=== PATIENT | female | born 1960 | race Caucasian/White ===

== ENCOUNTER → 2017-04-21 | Outpatient (CLI) | payer BC ==
--- NOTE | 2017-04-21 14:46 | RAD ---
INDICATION: Right lower quadrant pain COMPARISON: 06/25/2011 TECHNIQUE: Axial CT images were obtained through the abdomen and pelvis without intravenous contrast. Coronal reformations were processed. FINDINGS: Abdomen: Chest Base: Partially imaged without gross abnormality. Vessels: Mild calcific atherosclerosis. Liver/Biliary: Low-attenuation. Postcholecystectomy. Pancreas: No gross abnormality. Spleen: Normal. Kidneys/Adrenal: No hydronephrosis. GI: No free air. No bowel dilation to suggest obstruction. Appendix does not appear inflamed Pelvis: Bladder: Partially distended without gross abnormality. 2 mm calcification right hemipelvis. Small fat-containing umbilical hernia. Degenerative changes spine. This includes disc protrusions at L4-5 where there is a suspected central canal and neural foraminal stenosis. There is also suspected neural foraminal stenosis at L5-S1. IMPRESSION: 1. No evidence of bowel obstruction or appendicitis. 2. No hydronephrosis. There is a 1-2 mm calcification in the right hemipelvis but this appears to be just external to the right ureter rather than within the ureter. 3. Liver is low attenuation. Nonspecific but can be seen with fatty infiltration PQRS Compliance Statement: One or more of the following individualized dose reduction techniques were utilized for this examination: 1. Automated exposure control 2. Adjustment of the mA and/or kV according to patient size 3. Use of iterative reconstruction technique
--- NOTE | 2017-04-21 15:00 | RAD ---
INDICATION: Chronic sinus infection COMPARISON: 05/04/[address] TECHNIQUE: Axial CT images were obtained through the paranasal sinuses. FINDINGS: Mastoid air cells are aerated. Maxillary sinuses well aerated. Ethmoid air cells, frontal sinus and sphenoid sinuses well aerated. No retro-orbital mass or hematoma. IMPRESSION: No opacification of the paranasal sinuses to suggest sinusitis. PQRS Compliance Statement: One or more of the following individualized dose reduction techniques were utilized for this examination: 1. Automated exposure control 2. Adjustment of the mA and/or kV according to patient size 3. Use of iterative reconstruction technique
== END | disposition home or self-care (01) ==
LOC: CT 12:50
PROVIDERS: ATTEND Nurse Practitioner Adult Health
DX: J32.9 Chronic sinusitis, unspecified (principal); K76.0 Fatty (change of) liver, not elsewhere classified; K44.9 Diaphragmatic hernia without obstruction or gangrene; K29.90 Gastroduodenitis, unspecified, without bleeding; K21.9 Gastro-esophageal reflux disease without esophagitis; J06.9 Acute upper respiratory infection, unspecified; J02.8 Acute pharyngitis due to other specified organisms; R11.0 Nausea
CPT/HCPCS: 70486; 74176

== ENCOUNTER 2018-06-18 09:51 | Emergency (ER) | payer BC ==
[~2018-06-18] VITALS: Ht 157.5 cm; Wt 86.2 kg
[2018-06-18 10:09] VITALS: BP 105/45
[2018-06-18] MEDS ORDERED: IV NORMAL SALINE 1,000ML 1,000 ML IV ONE (10:45)
[2018-06-18 10:53] LABS: BASO % 0 % (0-3); EOS # 0.1 x10^3/uL (0.0-0.7); EOS % 2 % (0-3); HEMATOCRIT 39.1 % (36.0-47.0); HEMOGLOBIN 13.4 g/dL (12.0-15.5); LYMPH # 0.7 x10^3/uL (1.0-4.8); LYMPH % 10 % (24-48); MEAN CORPUSCULAR HEMOGLOBIN 32 pg (25-35); MEAN CORPUSCULAR HGB CONC 34 g/dL (31-37); MEAN CORPUSCULAR VOLUME 93 fL (79-100); MONO # 0.6 x10^3/uL (0.0-1.1); MONO % 8 % (0-9); NEUT # 5.8 x10^3uL (1.8-7.7); NEUT % 80 % (31-73); PLATELET COUNT 152 x10^3/uL (140-400); RED BLOOD COUNT 4.19 x10^6/uL (3.50-5.40); RED CELL DISTRIBUTION WIDTH 12.9 % (11.5-14.5); WHITE BLOOD COUNT 7.2 x10^3/uL (4.0-11.0)
[2018-06-18] MEDS ORDERED: IOHEXOL 300 MG/ML 75 ML VIAL. IV ONE (11:00)
[2018-06-18] MEDS ORDERED: MORPHINE SULFATE 2 MG/ML DISP.SYRIN. IV ONE (11:00)
[2018-06-18] MEDS ORDERED: ONDANSETRON PF 4 MG/2 ML VIAL. IV ONE (11:00)
--- NOTE | 2018-06-18 11:28 | PHYS DOC ---
Past History Past Medical History: Other Past Surgical History: Cholecystectomy, Tubal ligation, Other Alcohol Use: None Drug Use: None Adult General Chief Complaint Chief Complaint: ABDOMINAL PAIN HPI HPI 58-year-old female presents with right lower quadrant abdominal pain that started today. The pain is described as a cramping/throbbing sensation. It is intermittent. The patient admits to yesterday she was feeling a little "off" but did not have any specific complaints. Today the pain has been too intense to ignore. The patient has had her gallbladder removed, but not her appendix. She is concerned for appendicitis. She denies fever or chills. She has not had nausea or vomiting. She has had loose stools yesterday and today. Review of Systems Review of Systems Constitutional: Denies fever or chills [] Eyes: Denies change in visual acuity, redness, or eye pain [] HENT: Denies nasal congestion or sore throat [] Respiratory: Denies cough or shortness of breath [] Cardiovascular: No additional information not addressed in HPI [] GI: Right lower quadrant abdominal pain, diarrhea.[] : Denies dysuria or hematuria [] Musculoskeletal: Denies back pain or joint pain [] Integument: Denies rash or skin lesions [] Neurologic: Denies headache, focal weakness or sensory changes [] Endocrine: Denies polyuria or polydipsia [] All other systems were reviewed and found to be within normal limits, except as documented in this note. Current Medications Current Medications Current Medications Medications (Trade) Dose Ordered Sig/Hi Start Time Stop Time Status Last Admin Dose Admin Iohexol (Omnipaque 300 Mg/ml) 75 ml 1X ONCE 06/18/18 11:00 06/18/18 11:01 DC Morphine Sulfate (Morphine 2mg Syringe) 2 mg 1X ONCE 06/18/18 11:00 06/18/18 11:01 DC Ondansetron HCl (Zofran) 4 mg 1X ONCE 06/18/18 11:00 06/18/18 11:01 DC Sodium Chloride 1,000 ml @ 1,000 mls/hr 1X ONCE 06/18/18 10:45 06/18/18 11:44 Allergies Allergies Allergies Coded Allergies Type Severity Reaction Last Updated Verified Sulfa (Sulfonamide Antibiotics) Allergy Unknown 06/18/18 Yes tetanus and diphtheria toxoids Allergy Unknown 06/18/18 Yes Physical Exam Physical Exam Constitutional: Well developed, well nourished, no acute distress, non-toxic appearance. [] HENT: Normocephalic, atraumatic, bilateral external ears normal, oropharynx dry , no oral exudates, nose normal. [] Eyes: PERRLA, EOMI, conjunctiva normal, no discharge. [] Neck: Normal range of motion, no tenderness, supple, no stridor. [] Cardiovascular:Heart rate regular rhythm, no murmur [] Lungs & Thorax: Bilateral breath sounds clear to auscultation [] Abdomen: Mild to moderate tenderness in the right lower quadrant without rebound or guarding.[] Skin: Warm, dry, no erythema, no rash. [] Back: Lumbar back tenderness, chronic[] Extremities: No tenderness, no cyanosis, no clubbing, ROM intact, no edema. [] Neurologic: Alert and oriented X 3, normal motor function, normal sensory function, no focal deficits noted. [] Psychologic: Affect normal, judgement normal, mood normal. [] Current Patient Data Vital Signs Vital Signs Date Time Temp Pulse Resp B/P (MAP) Pulse Ox O2 Delivery O2 Flow Rate FiO2 06/18/18 10:09 Room Air 06/18/18 10:09 99.0 100 20 94 Lab Results Laboratory Tests Test 06/18/18 10:20 White Blood Count 7.2 x10^3/uL (4.0-11.0) Red Blood Count 4.19 x10^6/uL (3.50-5.40) Hemoglobin 13.4 g/dL (12.0-15.5) Hematocrit 39.1 % (36.0-47.0) Mean Corpuscular Volume 93 fL (79-100) Mean Corpuscular Hemoglobin 32 pg (25-35) Mean Corpuscular Hemoglobin Concent 34 g/dL (31-37) Red Cell Distribution Width 12.9 % (11.5-14.5) Platelet Count 152 x10^3/uL (140-400) Neutrophils (%) (Auto) 80 % (31-73) H Lymphocytes (%) (Auto) 10 % (24-48) L Monocytes (%) (Auto) 8 % (0-9) Eosinophils (%) (Auto) 2 % (0-3) Basophils (%) (Auto) 0 % (0-3) Neutrophils # (Auto) 5.8 x10^3uL (1.8-7.7) Lymphocytes # (Auto) 0.7 x10^3/uL (1.0-4.8) L Monocytes # (Auto) 0.6 x10^3/uL (0.0-1.1) Eosinophils # (Auto) 0.1 x10^3/uL (0.0-0.7) Basophils # (Auto) 0.0 x10^3/uL (0.0-0.2) EKG EKG [] Radiology/Procedures Radiology/Procedures [] Impressions: CT of the abdomen and pelvis with contrast, 06/18/2018: HISTORY: Right lower quadrant pain Multidetector CT imaging was performed following an IV bolus injection of iodinated contrast material. No oral contrast material was administered for this study. There is minimal bibasilar atelectasis or scarring. The gallbladder is surgically absent. The liver is of lower than normal density suggesting hepatic steatosis. No hepatic mass is evident. The pancreas is unremarkable. The spleen is at the upper limits of normal in size measuring 13 cm in craniocaudad extent. There is mild bilateral renal cortical scarring. The kidneys show no evidence of obstruction. The abdominal aorta is of normal caliber. No abdominal or pelvic adenopathy is seen. The uterus is unremarkable. There is a surgical clip along the right side of the uterus. The bowel loops are not dilated. A portion of the appendix is visualized and it is unremarkable. No free air or free fluid is evident in the abdomen or pelvis. There are degenerative changes in the lower lumbar spine. There appears to be a moderate sized disc herniation at L4-5 with moderate central spinal stenosis, as well as a prominent right lateral herniated disc fragment. IMPRESSION: 1. Hepatic steatosis. 2. Mild bilateral renal cortical scarring. 3. No acute abdominal or pelvic abnormality is detected. 4. Degenerative change with disc herniation at L4-5. PQRS Compliance Statement: One or more of the following individualized dose reduction techniques were utilized for this examination: 1. Automated exposure control 2. Adjustment of the mA and/or kV according to patient size 3. Use of iterative reconstruction technique Electronically signed by: Denis Yee MD (06/18/2018 12:53 PM) [facility] DICTATED AND SIGNED BY: DENIS YEE MD DATE: 06/18/18 1243 CC: FELICITAS WEBER DO; ANAND VILLA MD ~ Course & Med Decision Making Course & Med Decision Making Pertinent Labs and Imaging studies reviewed. (See chart for details) The patient's labs are unremarkable. Her CT is negative for acute findings. There are other findings. See official read for further details. Her urine is negative for infection. The patient is feeling quite a bit better after normal saline, Zofran, and 2 of morphine. The patient has had chills well being in the ED. She has no measured fever. It is likely that she is coming down with a viral illness. He has not had any evidence of bacterial infection. She is stable for discharge at this time. [] Dragon Disclaimer Dragon Disclaimer This electronic medical record was generated, in whole or in part, using a voice recognition dictation system. Departure Departure: Referrals: ANAND VILLA MD (PCP) FELICITAS WEBER DO Jun 18, 2018 11:28
[2018-06-18 12:28] LABS: ALBUMIN 3.3 g/dL (3.4-5.0); ALBUMIN/GLOBULIN RATIO 1.1 (1.0-1.7); CALCIUM 8.8 mg/dL (8.5-10.1); GFR 57.1; POTASSIUM 3.8 mmol/L (3.5-5.1); TOTAL BILIRUBIN 0.5 mg/dL (0.2-1.0); TOTAL PROTEIN 6.4 g/dL (6.4-8.2)
--- NOTE | 2018-06-18 12:57 | RAD ---
CT of the abdomen and pelvis with contrast, 06/18/2018: HISTORY: Right lower quadrant pain Multidetector CT imaging was performed following an IV bolus injection of iodinated contrast material. No oral contrast material was administered for this study. There is minimal bibasilar atelectasis or scarring. The gallbladder is surgically absent. The liver is of lower than normal density suggesting hepatic steatosis. No hepatic mass is evident. The pancreas is unremarkable. The spleen is at the upper limits of normal in size measuring 13 cm in craniocaudad extent. There is mild bilateral renal cortical scarring. The kidneys show no evidence of obstruction. The abdominal aorta is of normal caliber. No abdominal or pelvic adenopathy is seen. The uterus is unremarkable. There is a surgical clip along the right side of the uterus. The bowel loops are not dilated. A portion of the appendix is visualized and it is unremarkable. No free air or free fluid is evident in the abdomen or pelvis. There are degenerative changes in the lower lumbar spine. There appears to be a moderate sized disc herniation at L4-5 with moderate central spinal stenosis, as well as a prominent right lateral herniated disc fragment. IMPRESSION: 1. Hepatic steatosis. 2. Mild bilateral renal cortical scarring. 3. No acute abdominal or pelvic abnormality is detected. 4. Degenerative change with disc herniation at L4-5. PQRS Compliance Statement: One or more of the following individualized dose reduction techniques were utilized for this examination: 1. Automated exposure control 2. Adjustment of the mA and/or kV according to patient size 3. Use of iterative reconstruction technique Electronically signed by: Denis Yee MD (06/18/2018 12:53 PM) [facility]
[2018-06-18 14:46] LABS: BILIRUBIN,URINE NEG (NEG); CLARITY,URINE CLEAR; COLOR,URINE YELLOW; GLUCOSE,URINE NEG (NEG)
[2018-06-18 14:47] LABS: NITRITE,URINE NEG (NEG); RBC,URINE 0 /HPF (0-2); UROBILINOGEN,URINE 0.2 mg/dL (0.2 mg/dL)
[2018-06-18 14:48] LABS: BACTERIA,URINE 0 /HPF (0-FEW); SQUAMOUS EPITHELIAL CELL,UR OCC /LPF
== END 2018-06-18 15:30 | disposition home or self-care (01) ==
LOC: ER 09:51
DX: R10.31 Right lower quadrant pain (principal); R19.7 Diarrhea, unspecified; G89.29 Other chronic pain; K76.0 Fatty (change of) liver, not elsewhere classified; L90.5 Scar conditions and fibrosis of skin; M51.26 Other intervertebral disc displacement, lumbar region; Z90.49 Acquired absence of other specified parts of digestive tract; Z98.51 Tubal ligation status; Z88.2 Allergy status to sulfonamides; Z88.7 Allergy status to serum and vaccine
CPT/HCPCS: 36415; 74177; 80053; 81001; 85025; 96374; 96375; 99285; J2270; J2405; Q9967; J7030

== ENCOUNTER → 2018-11-01 | Outpatient (CLI) | payer BC ==
--- NOTE | 2018-11-01 16:53 | RAD ---
EXAM: Carotid Doppler sonogram. HISTORY: Mental status changes. TECHNIQUE: Flowers scale and color Doppler sonographic evaluation of the neck with spectral waveform analysis was performed and static images are submitted for review. FINDINGS: The peak systolic velocity within the right common carotid artery is 70 cm/sec. The peak systolic velocity within the right internal carotid artery is 75 cm/sec and the end diastolic velocity within the right internal carotid artery is 23 cm/sec. The right ICA/CCA ratio is 1.07. The peak systolic velocity within the left common carotid artery is 76 cm/sec. The peak systolic velocity within the left internal carotid artery is 77 cm/sec and the end diastolic velocity within the left internal carotid artery is 30 cm/sec. The left ICA/CCA ratio is 1.05. There is normal antegrade flow within both vertebral arteries. IMPRESSION: No Doppler evidence of hemodynamically significant stenosis within the carotid or vertebral arteries. PQRS Compliance Statement - Stenosis calculations for CT, MR and conventional angiography are based upon measurement of the distal ICA diameter in accordance with the NASCET methodology. Stenosis calculations for carotid ultrasound studies are derived from validated velocity criteria which are known to correlate with the NASCET methodology. Electronically signed by: Linda Ridley MD (11/01/2018 4:48 PM) [facility]
== END | disposition home or self-care (01) ==
LOC: US 14:44
PROVIDERS: ATTEND Nurse Practitioner Family
DX: R42 Dizziness and giddiness (principal); I10 Essential (primary) hypertension; G43.909 Migraine, unspecified, not intractable, without status migrainosus; E03.9 Hypothyroidism, unspecified; Z90.49 Acquired absence of other specified parts of digestive tract; Z82.49 Family history of ischemic heart disease and other diseases of the circulatory system; Z82.3 Family history of stroke; Z83.42 Family history of familial hypercholesterolemia; Z83.3 Family history of diabetes mellitus; Z88.7 Allergy status to serum and vaccine; Z88.8 Allergy status to other drugs, medicaments and biological substances
CPT/HCPCS: 93880

== ENCOUNTER → 2018-11-09 | Outpatient (CLI) | payer BC ==
[~2018-11-09] MED LIST: ALEN70TA6 PO; ASPI81TA50 PO; BUPR450T3 PO; DOCU-109 PO; FERR-36 PO; GABA300C8 PO; LEVO175T5 PO; LISD70CA5 PO; LORA-254 PO; MECL25TA3 PO; OMEP40CA5 PO; PROP120C3 PO; VORT20TA PO; ZONI100C PO; ZONI100C33 PO
--- NOTE | 2018-11-09 11:11 | RAD ---
Examination: Ultrasound thyroid HISTORY: History of hypothyroidism COMPARISON: None available FINDINGS: The right lobe of the thyroid gland measures 5.1 x 1.4 x 1.1 cm, the left lower thyroid gland measures 3.0 x 1.0 x 0.8 cm. Mildly increased vascularity identified in the thyroid gland. The thyroid gland appears heterogenous. Small hypoechoic nodule identified in the right lobe of the thyroid gland measuring 1.3 cm. The isthmus measures 2 mm in AP dimension. IMPRESSION: 1. 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 2. 1.3 cm hypoechoic nodule identified in the right lower thyroid gland. Follow-up examination is recommended in 6 months. ACR Tirads: 3. Electronically signed by: Javi White MD (11/09/2018 11:06 AM) [facility]
== END | disposition home or self-care (01) ==
LOC: US 08:55
PROVIDERS: ATTEND Nurse Practitioner Family
DX: E04.1 Nontoxic single thyroid nodule (principal); E03.9 Hypothyroidism, unspecified
CPT/HCPCS: 76536

== ENCOUNTER 2018-12-26 16:43 | Inpatient (IN) | payer BC ==
[~2018-12-26] VITALS: Ht 156.2 cm; Wt 82.8 kg
[2018-12-26] MEDS ORDERED: IV NORMAL SALINE 1,000ML 1,000 ML IV ONE (17:30)
--- NOTE | 2018-12-26 18:02 | PHYS DOC ---
Past History Past Medical History: GERD, Hypertension, Migraines Past Surgical History: Cholecystectomy, Tubal ligation Alcohol Use: None Drug Use: None Adult General Chief Complaint Chief Complaint: ACCIDENTAL INGESTION HPI HPI Patient is a 58 year old female who presents with complaining of multiple problem. Patient told triage that she ate chemical material today. Patient is a poor history and with flights of idea and states she didn't feel good today that was not unusual for her but she had pain from her neck going to suprapubic area as a chest pain and rated her pain 3/10. Patient states she looked at the mirror of her car while she was going to pay her bills and her tongue was orange and she thought maybe she ate some chemical material that she does not remember. Patient complaining of different problems including including tingling of her tongue off and on. Patient has flights of idea and a very poor historian and getting anxious with the question. Patient is alert and oriented and denies suicidal and homicidal ideation and states she has had audial hallucination with hearing music for a while and seen by her psychiatric for this problem. Review of Systems Review of Systems Constitutional: Denies fever or chills [] Eyes: Denies change in visual acuity, redness, or eye pain [] HENT: Denies nasal congestion or sore throat [] Respiratory: Denies cough or shortness of breath [] Cardiovascular: No additional information not addressed in HPI [] GI: Denies abdominal pain, nausea, vomiting, bloody stools or diarrhea [] : Denies dysuria or hematuria [] Musculoskeletal: Denies back pain or joint pain [] Integument: Denies rash or skin lesions [] Neurologic: Denies headache, focal weakness or sensory changes [] Endocrine: Denies polyuria or polydipsia [] All other systems were reviewed and found to be within normal limits, except as documented in this note. Current Medications Current Medications Current Medications Medications (Trade) Dose Ordered Sig/Hi Start Time Stop Time Status Last Admin Dose Admin Sodium Chloride 1,000 ml @ 1,000 mls/hr 1X ONCE 12/26/18 17:30 12/26/18 18:29 Allergies Allergies Allergies Coded Allergies Type Severity Reaction Last Updated Verified Sulfa (Sulfonamide Antibiotics) Allergy Unknown 06/18/18 Yes tetanus and diphtheria toxoids Allergy Unknown 06/18/18 Yes Physical Exam Physical Exam Constitutional: Well nourished, mild distress, non-toxic appearance. [] HENT: Normocephalic, atraumatic, bilateral external ears normal, oropharynx dry without change of color, no oral exudates, nose normal. [] Eyes: PERRLA, EOMI, conjunctiva normal, no discharge. [] Neck: Normal range of motion, no tenderness, supple, no stridor. [] Cardiovascular:Heart rate regular rhythm, no murmur [] Lungs & Thorax: Bilateral breath sounds clear to auscultation [] Abdomen: Bowel sounds normal, soft, no tenderness, no masses, no pulsatile masses. [] Skin: Warm, dry, no erythema, no rash. [] Back: No tenderness, no CVA tenderness. [] Extremities: No tenderness, no cyanosis, no clubbing, ROM intact, no edema. [] Neurologic: Alert and oriented X 3, normal motor function, normal sensory function, no focal deficits noted. [] Psychologic: Affect affect, judgement abnormal, denies suicidal and homicidal ideation. Current Patient Data Vital Signs Vital Signs Date Time Temp Pulse Resp B/P (MAP) Pulse Ox O2 Delivery O2 Flow Rate FiO2 12/26/18 17:02 97.8 20 93 EKG EKG EKG interpreted by me. EKG at 1758 showed number sinus rhythm at rate of 77, left roche axis, no acute ST and T-wave abnormalities.[] Radiology/Procedures Radiology/Procedures [] Course & Med Decision Making Course & Med Decision Making Pertinent Labs and Imaging studies are pending. Admission of patient in ER showed 58-year-old female patient with multiple complaining and psychotic behavior. Patient was yelling and screaming and complaining of having seizure and stroke during evaluation and starting IV line. Patient care transferred to Dr. Reyna at 1800. Dragon Disclaimer Dragon Disclaimer This electronic medical record was generated, in whole or in part, using a voice recognition dictation system. Departure Departure: Impression: Primary Impression: Psychosis Referrals: ANAND VILLA MD (PCP) SISI LIZARRAGA MD Dec 26, 2018 18:02
[2018-12-26 18:13] LABS: BASO % 1 % (0-3); EOS # 0.1 x10^3/uL (0.0-0.7); EOS % 2 % (0-3); HEMATOCRIT 39.6 % (36.0-47.0); HEMOGLOBIN 13.5 g/dL (12.0-15.5); LYMPH # 1.9 x10^3/uL (1.0-4.8); LYMPH % 29 % (24-48); MEAN CORPUSCULAR HEMOGLOBIN 31 pg (25-35); MEAN CORPUSCULAR HGB CONC 34 g/dL (31-37); MEAN CORPUSCULAR VOLUME 93 fL (79-100); MONO # 0.6 x10^3/uL (0.0-1.1); MONO % 9 % (0-9); NEUT # 3.9 x10^3uL (1.8-7.7); NEUT % 60 % (31-73); PLATELET COUNT 225 x10^3/uL (140-400); RED BLOOD COUNT 4.29 x10^6/uL (3.50-5.40); RED CELL DISTRIBUTION WIDTH 12.9 % (11.5-14.5); WHITE BLOOD COUNT 6.6 x10^3/uL (4.0-11.0)
[2018-12-26 18:28] LABS: BACTERIA,URINE 0 /HPF (0-FEW); BILIRUBIN,URINE NEG (NEG); CLARITY,URINE CLEAR; COLOR,URINE YELLOW; GLUCOSE,URINE NEG (NEG); NITRITE,URINE NEG (NEG); RBC,URINE 0 /HPF (0-2); UROBILINOGEN,URINE 1 mg/dL (0.2 mg/dL); WBC,URINE 0 /HPF (0-4)
[2018-12-26 18:31] LABS: ALBUMIN 3.9 g/dL (3.4-5.0); BARBITURATES NEG (NEG); BENZODIAZEPINES NEG (NEG); CALCIUM 9.3 mg/dL (8.5-10.1); CANNABINOIDS NEG (NEG); COCAINE NEG (NEG); DIRECT BILIRUBIN 0.1 mg/dL (0.0-0.2); GFR 57.1; METHADONE NEG (NEG); OPIATES NEG (NEG); PHENCYCLIDINE NEG (NEG); POTASSIUM 3.5 mmol/L (3.5-5.1); TOTAL BILIRUBIN 0.3 mg/dL (0.2-1.0); TOTAL PROTEIN 7.3 g/dL (6.4-8.2)
[2018-12-26 18:36] LABS: ACETAMIN < 2 mcg/mL (10-30)
[2018-12-26 18:37] LABS: AMPHETAMINE/METHAMPHETAMINE NEG (NEG); ETHANOL < 10 mg/dL (0-10)
--- NOTE | 2018-12-26 18:44 | RAD ---
EXAM: CT Head without IV contrast CLINICAL HISTORY: Confusion, altered mental status COMPARISON: None. TECHNIQUE: Routine CT of the head without contrast. Soft tissues and bone windows were reviewed. PQRS compliance statement - One or more of the following individualized dose reduction techniques were utilized for this study: 1. Automated exposure control 2. Adjustment of the mA and/or kV according to patient size 3. Use of iterative reconstruction technique FINDINGS: There is no evidence of hemorrhage, mass or extra-axial fluid collection. Cho-white differentiation is maintained with no evidence of edema. There is no mass effect or shift of the intracranial structures. The ventricles, basilar cisterns and cortical sulci are normal in size and configuration for the patients stated age. The cerebellum and brainstem are unremarkable. The calvarium demonstrates no evidence of fracture or focal lesion. There is normal aeration of the visualized paranasal sinuses and mastoid air cells. The visualized portions of the orbits are normal. IMPRESSION: 1. No evidence for acute intracranial process. Electronically signed by: Bobby Villalpando MD (12/26/2018 6:40 PM) [facility]
[2018-12-26] MEDS ORDERED: ASPIRIN 325 MG TABLET PO ONE (20:15)
[2018-12-26] MEDS ORDERED: ASPIRIN RECTAL 300 MG SUPP. PR ONE (20:45)
--- NOTE | 2018-12-26 20:54 | EKG ---
[address] [address] Test Date: 2018-12-26 Test Time: 17:58:08 Pat Name: PHILLIP VELA Department: Room: Gender: F Mine [employer]r: MIRNA : 1960 Requested By: SISI LIZARRAGA Order Number: [id number] Reading MD: Vadim Ring MD Measurements Intervals [place] Rate: 77 P: 18 UT: 186 QRS: -6 QRSD: 102 T: 90 QT: 404 QTc: 459 Interpretive Statements SINUS RHYTHM NON-SPECIFIC ST/T CHANGES Electronically Signed On 12-27-2018 9:15:02 CDT by Vadim Ring MD
[2018-12-26] MEDS ORDERED: LORazepam 1 MG TABLET PO PRN (22:30)
[2018-12-26 22:50] VITALS: BP 181/113
[2018-12-26 23:45] VITALS: BP 118/75
[2018-12-27] MEDS ORDERED: PROP120C3 PO (02:03)
[2018-12-27] MEDS ORDERED: DOCU-109 PO (02:03)
[2018-12-27] MEDS ORDERED: ALEN70TA6 PO (02:03)
[2018-12-27] MEDS ORDERED: FERR-36 PO (02:03)
[2018-12-27] MEDS ORDERED: ZONI100C PO (02:03)
[2018-12-27] MEDS ORDERED: VORT20TA PO (02:03)
[2018-12-27] MEDS ORDERED: LEVO175T5 PO (02:03)
[2018-12-27] MEDS ORDERED: BUPR450T3 PO (02:03)
[2018-12-27 05:29] VITALS: BP 115/74
[2018-12-27] MEDS: LEVOTHYROXINE 175 MCG TABLET PO SCH (06:36)
[2018-12-27] MEDS ORDERED: GABA300C8 PO (06:43)
[2018-12-27] MEDS ORDERED: MECL25TA3 PO (06:43)
[2018-12-27] MEDS ORDERED: LISD70CA5 PO (06:43)
[2018-12-27] MEDS ORDERED: OMEP40CA5 PO (06:43)
[2018-12-27] MEDS: NON FORMULARY ITEM (Lisdexamfetamine Dimesylate (Vyvanse) 70 MG) PO SCH (09:00)
[2018-12-27] MEDS ORDERED: GABAPENTIN 300 MG CAPSULE. PO PRN (09:00)
[2018-12-27] MEDS ORDERED: MECLIZINE 12.5 MG TABLET. PO PRN (09:00)
[2018-12-27] MEDS: NON FORMULARY ITEM (Vortioxetine Hydrobromide (Trintellix) 20 MG) PO SCH (09:00)
--- NOTE | 2018-12-27 09:12 | RAD ---
EXAM: Chest, 2 views. HISTORY: Shortness of breath. COMPARISON: None. FINDINGS: 2 views of the chest are obtained. There is no infiltrate, pleural effusion or pneumothorax. The heart is normal in size. IMPRESSION: No acute pulmonary finding. Electronically signed by: Linda Ridley MD (12/27/2018 9:10 AM) [facility]
[2018-12-27] MEDS: PANTOPRAZOLE 40 MG TABLET. PO SCH ×2 (09:23→22:24)
[2018-12-27] MEDS: buPROPion XL 150 MG TAB.ER.24H PO SCH (09:23)
[2018-12-27] MEDS: ZONISAMIDE 100 MG CAPSULE. PO SCH ×2 (09:24→22:24)
[2018-12-27] MEDS: PROPRANOLOL ER 60 MG CAP.SA.24H. PO SCH (09:24)
[2018-12-27 10:37] VITALS: BP 106/77
[2018-12-27 13:27] VITALS: BP 159/99
[2018-12-27 15:12] VITALS: BP 134/83
[2018-12-27 20:02] VITALS: BP 129/82
--- NOTE | 2018-12-27 21:33 | HP ---
ADMIT DATE: 12/26/2018 HISTORY OF PRESENT ILLNESS: A 58-year-old female who came in through the Emergency Room having left-sided facial weakness as well as dysarthria and difficulty in forming her words. The patient notes that she has been having problems with pain in the right side of her face as well as some chest pain, rated 3/10. The patient also noted she was having problems with smacking of her lips. There was a possibility of some chemical induced, but verification of all this was basically unremarkable. Apparently, the patient has had some form of seizures in the past, has been worked up at for this as well, could have been another seizure activity or could be a TIA versus stroke in evolution. The patient does have some right-sided tingling and numbness as well as dysarthria. The patient was admitted to the hospital for further evaluation and treatment. PAST MEDICAL HISTORY: Includes some numbness to the tongue, hypertension, heartburn, indigestion, tubal ligation, osteoarthritis, back surgery, endocrine disorders, hypothyroidism, psychiatric problems, depression and cardioneurogenic syndrome. IMMUNIZATIONS: Up-to-date. FAMILY HISTORY: Mother with history of hypertension, hypercholesterolemia, father with heart disease, diabetes as well as the mother, congestive heart failure in the mother, aunt with breast cancer. ALLERGIES: ____. TETANUS: DIPHTHERIA TOXOID. REVIEW OF SYSTEMS: Basically positive for this numbness and tingling in her tongue as well as the left side of her face and smacking of her lips and weakness on the right side of her arm. The patient also felt some chest discomfort. MEDICATIONS: Reconciliation of the medications was performed and they are in the chart, few on the list including ferrous sulfate, propranolol 120 mg q. 4, gabapentin 300, zonisamide 400 mg b.i.d., bupropion XL 400 mg p.o. daily, has been reviewed by the doctors down at , Trintellix 20 mg daily, Vyvanse 70 mg daily, also noted that the doctors down at gave docusate sodium, meclizine 25, Prilosec 40, levothyroxine 175, Fosamax 70 mg weekly. SOCIAL HISTORY: The patient denies smoking, alcohol or drug use. REVIEW OF SYSTEMS: As stated in the HPI, otherwise basically unremarkable. PHYSICAL EXAMINATION: GENERAL: This is a pleasant white female, having some problems for me in her words. VITAL SIGNS: Blood pressure that of 180/113, respiratory rate 12, pulse 66, afebrile. HEENT: The patient's head was atraumatic, normocephalic. Eyes: PERRLA without jaundice. The mouth and throat were normal. NECK: Supple, without JVD or thyromegaly. LUNGS: Diminished throughout, poor movement of air. CARDIOVASCULAR: Regular sinus rhythm, S1, S2, without murmur, rub, thrill, or extra heart sound. ABDOMEN: Soft, nontender, no rebound or guarding. Positive bowel sounds, no hepatosplenomegaly was noted. EXTREMITIES: No clubbing, cyanosis or edema. NEUROLOGIC: The patient is alert and oriented, although I have trouble speaking with her words, some numbness to the left side of her face and tingling down the tongue itself. The patient has some mild differential weakness to the right hand versus that of the left reflexes are brisk and plantars are down. NEUROLOGIC: Otherwise seems to be aware. She does have some memory issues. LABORATORY DATA: CBC was unremarkable. Chemistries were all basically unremarkable. Cardiac enzymes so far have been negative. The patient's UA was unremarkable. In any case head CT was unremarkable. IMPRESSION: Transient ischemic attack versus stroke, seizure activity, possibility as well. The patient will be monitored carefully for any changes in neurological status. Consult with Neurology to make further evaluation on her as indicated. ANAND VILLA MD DR: QUENTIN/asuncion JOB#: [id number] / [id number]
[2018-12-27 23:17] VITALS: BP 127/79
--- NOTE | 2018-12-28 03:35 | CONS ---
DATE OF CONSULTATION: 12/27/2018 REFERRING PHYSICIAN: Jorje Rebolledo MD REASON FOR CONSULTATION: Rule out stroke versus TIA or seizure. HISTORY OF PRESENT ILLNESS: This is a 58-year-old right-handed female, who was admitted through Emergency Room on account of recurrent episodes since 03:00 p.m. yesterday. The patient stated that she looked at her tongue when she was driving and she found her tongue was painted with orange color and thought some chemical materials entered through her window to her esophagus and stomach. Subsequently, she started experiencing burning sensation from the throat down to the hypogastric regions. The spell lasted approximately 7-10 minutes and associated with intermittent numbness and paresthesia of the left face and upper and lower extremity pain transferred to the right side. The patient also states she tasted a chemical material in her mouth. She has had history of seizure in the past and she was evaluated at [facility]. The patient described at least 7-10 episodes since yesterday; however, she did have 2 to 3 episodes today. The last one was about 1-1/2 half hour ago. She denies any loss of consciousness, confusion, bowel or bladder incontinence or any noticeable seizure-like activities. The patient also denies headaches, visual disturbances, dysarthria, dysphagia. Currently, she complains of localized lower back pain aggravated by physical activities. She also complains of intermittent memory loss. Initial non-enhanced head CT scan revealed no evidence of acute intracranial process. The patient denies chest pain, shortness of breath or palpitation. PAST MEDICAL HISTORY: Quite extensive for depression, anxiety, attention-deficit hyperactivity disorder, history of GERD, indigestion, osteoarthritis, hypothyroidism and hypertension. PAST SURGICAL HISTORY: Positive for tubal ligations, lumbosacral spine surgery in June of 2018 for degenerative disk disease, cholecystectomy. FAMILY HISTORY: Mother had hypertension and hyperlipidemia. Father had heart disease, diabetes, congestive heart failure in her mother, aunt with breast cancer. SOCIAL HISTORY: The patient is . She has 1 daughter. She denies smoking, alcohol drinking, or illicit drug use. CURRENT MEDICATIONS: Alendronate 70 mg weekly, bupropion ER 400 mg daily, iron 325 mg twice daily, gabapentin 300 mg b.i.d., levothyroxine 175 mcg p.o. daily, Vyvanse 70 mg daily, meclizine 25 mg p.r.n. for dizziness, omeprazole 40 mg daily, propranolol 120 mg daily, Trintellix 20 mg daily and zonisamide 100 mg capsule, 400 b.i.d. ALLERGIES: SULFA DRUGS, TETANUS AND DIPHTHERIA TOXOID. REVIEW OF SYSTEMS: A 10-point review of system was performed as mentioned above in the history of present illness and consistent with multiple medical problems including lower back pain, burning sensations from the throat down to the hypogastric region along with numbness and paresthesia in different parts of her body. PHYSICAL EXAMINATION: GENERAL: Well-developed, well-nourished female, not in acute distress. She weighs 182.4 pounds. VITAL SIGNS: Blood pressure ____, respiratory rate 18, pulse is 70, temperature 98.2, oxygen saturation 94% on room air. HEENT: Normocephalic, atraumatic, otherwise, unremarkable. NECK: Supple, negative for carotid bruit, lymphadenopathy or thyromegaly. CHEST: Clear to A and P. CARDIOVASCULAR: Regular rate and rhythm, normal S1, S2. There is no S3, S4 or murmur. ABDOMEN: Soft. Bowel sounds positive. EXTREMITIES: Negative for cyanosis, clubbing, or pitting edema. NEUROLOGICAL: Mental status: The patient is alert and oriented x 3. The speech is fluent. There is no language dysfunction. Memory, judgment, and abstract thinking are normal. The patient denies hallucination or delusion. CRANIAL NERVES: Visual lee are full. The pupils are reactive to light and accommodation. The extraocular movements are intact. There is no nystagmus. There is no facial motor or sensory deficit. Hearing is intact bilaterally. The palate is elevated symmetrically. Sternocleidomastoid muscles are powerful bilaterally. The patient shrugs her shoulders symmetrically, protrudes her tongue in the midline without fasciculation or atrophy. MOTOR EXAMINATION: No focal muscle bulk was seen. The tone is normal. The strength is 5/5 throughout. SENSORY: Revealed normal pinprick, light touch, vibratory and position senses. Deep tendon reflexes were asymmetric and active without pathologic responses. Gait and stance is steady. The patient walks in the room without assistance. The coordination is normal. LABORATORY DATA: CBC revealed white blood cells of 6600, hemoglobin 13.5, hematocrit 39.6, platelet count 225,000. Chemistry revealed sodium of 144, potassium 3.5, chloride 108, CO2 of 26, BUN 9, creatinine 1 and glucose 99. Liver enzymes are normal. Troponin level is normal. Urine drug screen is negative. Urinalysis is trace of leukocyte esterase. IMPRESSION: 1. Recurrent episodes described as burning sensations from the throat to the hypogastric regions associated with intermittent numbness and paresthesia of the upper and lower extremities along with strange taste in her mouth, etiology uncertain; however, underlying multiple psychiatric problems including depression, anxiety and attention deficit disorders, may have contributed to the current symptoms; however, other neurological problems include seizure versus psychogenic seizure should be considered as well. 2. Multiple medical problems include hypertension, arthritis, chronic lower back pain, hypothyroidism, gastroesophageal reflux disease. 3. Multiple psychiatric problems include depressions, anxiety and attention deficit disorder. RECOMMENDATION: 1. Continue with current management and home medications. 2. We will arrange for electroencephalogram on outpatient basis. 3. We will obtain medical record from [facility] regarding history of seizure disorder. M Anahi TUTTLE MD DR: TOMASA/asuncion JOB#: [id number] / [id number]
[2018-12-28] MEDS: LEVOTHYROXINE 175 MCG TABLET PO SCH (05:20)
[2018-12-28 05:25] VITALS: BP 106/72
[2018-12-28] MEDS: buPROPion XL 150 MG TAB.ER.24H PO SCH (08:56)
[2018-12-28] MEDS: PANTOPRAZOLE 40 MG TABLET. PO SCH (08:56)
[2018-12-28] MEDS: ZONISAMIDE 100 MG CAPSULE. PO SCH (08:57)
[2018-12-28] MEDS: PROPRANOLOL ER 60 MG CAP.SA.24H. PO SCH (08:57)
[2018-12-28] MEDS ORDERED: DOCUSATE SODIUM 100 MG CAPSULE PO SCH (09:00)
[2018-12-28] MEDS: NON FORMULARY ITEM (Lisdexamfetamine Dimesylate (Vyvanse) 70 MG) PO SCH (09:00)
[2018-12-28] MEDS ORDERED: DOCUSATE SODIUM 100 MG CAPSULE PO ONE (09:00)
[2018-12-28] MEDS: NON FORMULARY ITEM (Vortioxetine Hydrobromide (Trintellix) 20 MG) PO SCH (09:00)
--- NOTE | 2018-12-28 09:32 | PN ---
DATE: SUBJECTIVE: The patient denies any new medical or neurological complaints. She denies any recurrent spells of dizziness, numbness or paresthesia. She slept well. She eats and drinks well. She denies any headaches. OBJECTIVE: GENERAL: Well-developed, well-nourished female, not in acute distress. VITAL SIGNS: Blood pressure 106/72, respiratory rate 14, pulse is 57, temperature 97.5, oxygen saturation 93% on room air. HEENT: Normocephalic, atraumatic, otherwise unremarkable. NECK: Supple. Negative for carotid bruit, lymphadenopathy or thyromegaly. LUNGS: Clear to A and P. CARDIOVASCULAR: Regular rate and rhythm, normal S1, S2. ABDOMEN: Soft. Bowel sounds positive. EXTREMITIES: Negative for cyanosis, clubbing or pitting edema. NEUROLOGICAL EXAM: MENTAL STATUS: The patient is alert and oriented x 3. Speech is fluent. There is no language dysfunction. Memory, judgment, and abstract thinking are normal. The patient denies hallucination or delusion. Cranial nerves are intact. No focal motor or sensory deficit. Deep tendon reflexes were symmetric and active without pathology responses. Gait and coordination were normal. IMPRESSION: 1. Recurrent episodes described as a sudden onset of strange taste in the mouth, numbness and paresthesia of the upper and lower extremities with memory loss, etiology uncertain, underlying multiple psychiatric problems and questionable of seizure versus nonepileptic seizure may have contributed to the current symptoms. 2. Multiple medical problems include history of migraine, depression, anxiety, attention deficit hyperactivity disorder, gastroesophageal reflux disease, hypothyroidism, chronic lower back pain, hypertension and arthritis. RECOMMENDATIONS: Continue with the previous neurological recommendations. Otherwise, continue with current management initiated by Dr. Rebolledo. M Anahi TUTTLE MD DR: TOMASA/asuncion JOB#: [id number] / [id number]
[2018-12-28 11:04] VITALS: BP 109/68
[2018-12-28] MEDS ORDERED: LORA-254 PO (11:47)
[2018-12-28] MEDS ORDERED: ASPI81TA50 PO (12:04)
--- NOTE | 2018-12-28 12:27 | DS ---
DATE OF DISCHARGE: HOSPITAL COURSE: She is resting fairly comfortably. The patient apparently had either seizure activity or a problem with a TIA. She will be seen by Dr. Devlin here shortly outpatient for EEG and make further evaluation on her. Otherwise, her labs remain basically stable. Cardiac enzymes were negative. The patient will be followed up accordingly and then follow up with Dr. Devlin. IMPRESSION: Transient ischemic attack versus [id number], tonic-clonic seizures, essential hypertension, hypercholesterolemia and mild obesity. Continue to monitor the patient. See MRAD. Decreased activity and followup with Dr. Devlin as indicated. ANAND VILLA MD DR: QUENTIN/asuncion JOB#: [id number] / [id number]
--- NOTE | 2018-12-28 14:24 | EKG ---
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
[2018-12-28] MEDS ORDERED: FERROUS SULFATE 325 MG TABLET. PO SCH (16:00)
== END 2018-12-28 12:25 | disposition home or self-care (01) | DRG 65 ==
LOC: ER 16:43 → 1 SOUTH 20:42
PROVIDERS: ADMIT Family Medicine; ATTEND Family Medicine
DX: I63.9 Cerebral infarction, unspecified (principal); G45.9 Transient cerebral ischemic attack, unspecified; G40.89 Other seizures; R47.1 Dysarthria and anarthria; E03.9 Hypothyroidism, unspecified; E66.9 Obesity, unspecified; E78.00 Pure hypercholesterolemia, unspecified; F29 Unspecified psychosis not due to a substance or known physiological condition; F41.9 Anxiety disorder, unspecified; F90.9 Attention-deficit hyperactivity disorder, unspecified type; F98.8 Other specified behavioral and emotional disorders with onset usually occurring in childhood and adolescence; G89.29 Other chronic pain; I10 Essential (primary) hypertension; K21.9 Gastro-esophageal reflux disease without esophagitis; M19.90 Unspecified osteoarthritis, unspecified site; R29.810 Facial weakness; Z80.3 Family history of malignant neoplasm of breast; Z82.49 Family history of ischemic heart disease and other diseases of the circulatory system; Z83.3 Family history of diabetes mellitus; F32.9 Major depressive disorder, single episode, unspecified; G43.909 Migraine, unspecified, not intractable, without status migrainosus; M47.9 Spondylosis, unspecified; M51.37 Other intervertebral disc degeneration, lumbosacral region; Z68.33 Body mass index [BMI] 33.0-33.9, adult; Z88.2 Allergy status to sulfonamides; Z88.8 Allergy status to other drugs, medicaments and biological substances; Z90.49 Acquired absence of other specified parts of digestive tract; Z98.51 Tubal ligation status
CPT/HCPCS: 36415; 70450; 71046; 80048; 80061; 80076; 80307; 80329; 81001; 83735; 84484; 85025; 87086; 93005; 96361; 96374; G0480; J2060; 82003; 97530; 99285-25; J7030

== ENCOUNTER 2019-02-27 19:10 | Inpatient (IN) | payer BC ==
[~2019-02-27] VITALS: Ht 154.9 cm; Wt 83.7 kg
[~2019-02-27 19:10] MED LIST changes: -ZONI100C33 PO
--- NOTE | 2019-02-27 19:12 | ED.ADGEN ---
Past History Past Medical History: Anxiety, GERD, Hypertension, Migraines, Seizure Past Surgical History: Cholecystectomy, Tubal ligation Alcohol Use: None Drug Use: None Adult General Chief Complaint Chief Complaint ".. I think I had a seizure...".." I don't know.. I ve had migraines.. 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 Pt. reports hx of seizures, but not currently on meds for seizures. Has been on seizures in the past. Pt. has been seen by Dr. Devlin here and was to also follow up at . Pt. has not had EEG or MRI. Pt. does have recurrent migraines. Pt. reports recent increasing confusion and poor memory. Patient reports that previous seizures have been reportedly tonic-clonic by witnesses of the events. Patient denies any travel. Patient denies any specific ill contacts. Patient denies any history immunosuppression. Patient denies any trauma. Patient has had previous injuries. One head injury occurred while working at . Review of Systems Review of Systems Constitutional: Denies fever or chills [] Eyes: Denies change in visual acuity, redness, or eye pain [] HENT: Denies nasal congestion or sore throat [] Respiratory: Denies cough or shortness of breath [] Cardiovascular: No additional information not addressed in HPI [] GI: Denies abdominal pain, nausea, vomiting, bloody stools or diarrhea [] : Denies dysuria or hematuria [] Musculoskeletal: Denies back pain or joint pain [] Integument: Denies rash or skin lesions [] Neurologic: Denies headache, focal weakness or sensory changes. Has complains of seizure and confusion Endocrine: Denies polyuria or polydipsia [] All other systems were reviewed and found to be within normal limits, except as documented in this note. Family History Family History Non-contributory Current Medications Current Medications Current Medications Medications (Trade) Dose Ordered Sig/Hi Start Time Stop Time Status Last Admin Dose Admin Enoxaparin Sodium (Lovenox 80mg Syringe) 80 mg BID 02/27/19 21:00 02/27/19 23:39 80 MG Lactated Ringer's 1,000 ml @ 1,000 mls/hr Q1H 02/27/19 19:30 02/27/19 20:29 DC 02/27/19 19:31 1,000 MLS/HR Levetiracetam (Keppra) 500 mg STK-MED ONCE 02/27/19 19:49 02/27/19 19:50 DC Levetiracetam 1000 mg/Sodium Chloride 100 ml @ 400 mls/hr 1X ONCE 02/27/19 20:00 02/27/19 20:14 DC 02/27/19 20:32 400 MLS/HR Lorazepam (Ativan Inj) 2 mg 1X PRN PRN 02/27/19 20:45 Ondansetron HCl (Zofran) 4 mg PRN Q4HRS PRN 02/27/19 20:45 02/28/19 20:44 Sodium Chloride 100 ml @ As Directed STK-MED ONCE 02/27/19 19:48 02/27/19 19:49 DC Allergies Allergies Allergies Coded Allergies Type Severity Reaction Last Updated Verified Sulfa (Sulfonamide Antibiotics) Allergy Intermediate 02/27/19 Yes tetanus and diphtheria toxoids Allergy Intermediate 02/27/19 Yes Physical Exam Physical Exam Constitutional: , no acute distress, non-toxic appearance. [] HENT: Normocephalic, atraumatic, bilateral external ears normal, oropharynx moist, no oral exudates, nose normal. []Large old scar mid forehead Eyes: PERRLA, EOMI, conjunctiva normal, no discharge. [] Glasses. Neck: Normal range of motion, no tenderness, supple, no stridor. [] Cardiovascular: Bradycardia Heart rate regular rhythm, no murmur [] Lungs & Thorax: Bilateral breath sounds equal at apexes with few scattered wheezes on auscultation [] Abdomen: Bowel sounds normal, soft, no tenderness, no masses, no pulsatile masses. []Obese. Old scars. Skin: Warm, dry, no erythema, no rash. [] Back: No tenderness, no CVA tenderness. [] Extremities: No tenderness, no cyanosis, no clubbing, ROM intact, no edema. [] Neurologic: Alert and oriented X 3, normal motor function, normal sensory function, no focal deficits noted. []DTR + 2 Rt patella and 3+ Lt. Admitted Attorneys equal. RT hand dominate. Slow to respond to questions- as if post ictal. Somewhat wide gait. Psychologic: Affect anxious, currently appears to be post ictal, mood normal. [] Current Patient Data Vital Signs Vital Signs Date Time Temp Pulse Resp B/P (MAP) Pulse Ox O2 Delivery O2 Flow Rate FiO2 02/27/19 20:47 65 20 157/93 (114) 95 Room Air 02/27/19 19:15 97.4 Lab Results Laboratory Tests Test 02/27/19 19:20 02/27/19 20:20 White Blood Count 8.9 x10^3/uL (4.0-11.0) Red Blood Count 4.74 x10^6/uL (3.50-5.40) Hemoglobin 15.1 g/dL (12.0-15.5) Hematocrit 45.0 % (36.0-47.0) Mean Corpuscular Volume 95 fL (79-100) Mean Corpuscular Hemoglobin 32 pg (25-35) Mean Corpuscular Hemoglobin Concent 34 g/dL (31-37) Red Cell Distribution Width 13.7 % (11.5-14.5) Platelet Count 243 x10^3/uL (140-400) Neutrophils (%) (Auto) 60 % (31-73) Lymphocytes (%) (Auto) 28 % (24-48) Monocytes (%) (Auto) 7 % (0-9) Eosinophils (%) (Auto) 3 % (0-3) Basophils (%) (Auto) 1 % (0-3) Neutrophils # (Auto) 5.4 x10^3uL (1.8-7.7) Lymphocytes # (Auto) 2.5 x10^3/uL (1.0-4.8) Monocytes # (Auto) 0.6 x10^3/uL (0.0-1.1) Eosinophils # (Auto) 0.3 x10^3/uL (0.0-0.7) Basophils # (Auto) 0.1 x10^3/uL (0.0-0.2) Erythrocyte Sedimentation Rate 39 (0-25) H Prothrombin Time 9.3 SEC (9.4-11.4) L Prothrombin Time INR 0.9 (0.9-1.1) PTT 21 SEC (23-33) L D-Dimer (Pamela) 0.68 mg/L (0.00-0.50) H Sodium Level 141 mmol/L (136-145) Potassium Level 3.8 mmol/L (3.5-5.1) Chloride Level 102 mmol/L (98-107) Carbon Dioxide Level 31 mmol/L (21-32) Anion Gap 8 (6-14) Blood Urea Nitrogen 19 mg/dL (7-20) Creatinine 1.3 mg/dL (0.6-1.0) H Estimated GFR (Cockcroft-Gault) 42.1 Glucose Level 79 mg/dL (70-99) Calcium Level 9.7 mg/dL (8.5-10.1) Magnesium Level 2.1 mg/dL (1.8-2.4) Total Bilirubin 0.4 mg/dL (0.2-1.0) Direct Bilirubin 0.1 mg/dL (0.0-0.2) Aspartate Amino Transferase (AST) 39 U/L (15-37) H Alanine Aminotransferase (ALT) 65 U/L (14-59) H Alkaline Phosphatase 73 U/L (46-116) Creatine Kinase 127 U/L (26-192) Troponin I Quantitative < 0.017 ng/mL (0-0.055) NS-Ydj-G-Type Natriuretic Peptide 26 pg/mL (0-124) Total Protein 8.5 g/dL (6.4-8.2) H Albumin 4.4 g/dL (3.4-5.0) Lipase 180 U/L (73-393) Urine Collection Type Unknown Urine Color Yellow Urine Clarity Clear Urine pH 6.5 Urine Specific Bath 1.010 Urine Protein Neg (NEG-TRACE) Urine Glucose (UA) Neg mg/dL (NEG) Urine Ketones (Stick) Neg mg/dL (NEG) Urine Blood Large (NEG) Urine Nitrite Neg (NEG) Urine Bilirubin Neg (NEG) Urine Urobilinogen Dipstick 0.2 mg/dL (0.2 mg/dL) Urine Leukocyte Esterase Neg (NEG) Urine RBC 3-5 /HPF (0-2) Urine WBC 1-4 /HPF (0-4) Urine Squamous Epithelial Cells Occ /LPF Urine Bacteria Few /HPF (0-FEW) Urine Mucus Slight /LPF Urine Opiates Screen Neg (NEG) Urine Methadone Screen Neg (NEG) Urine Barbiturates Neg (NEG) Urine Phencyclidine Screen Neg (NEG) Urine Amphetamine/Methamphetamine Pos (NEG) Urine Benzodiazepines Screen Neg (NEG) Urine Cocaine Screen Neg (NEG) Urine Cannabinoids Screen Neg (NEG) Urine Ethyl Alcohol Neg (NEG) EKG EKG My interpretation of EKG shows a sinus bradycardia at [address] [place]. Nonspecific contour changes. No findings acute STEMI with contralateral changes.[] Radiology/Procedures Radiology/Procedures My interpretation of chest x-ray shows borderline cardiac silhouette. But no large infiltrate. No free air in the diaphragm. Does have clips in right upper abdomen. My interpretation CT head shows no shift, mass, edema, bleed, or fracture. See formal report when available. My interpretation CT chest shows no obvious large pulmonary embolism. See formal report when available.[] Course & Med Decision Making Course & Med Decision Making Pertinent Labs and Imaging studies reviewed. (See chart for details). Patient admitted to Dr. Bhakta for further evaluation and treatment with a consult to neurology. [] Final Impression Final Impression 1. Seizure 2. Postictal 3. History of recent increase confusion and memory issues 4. Accelerated hypertension 5. Elevated sedimentation rate 39 6. Hematuria 7. Urine drug screen positive for amphetamine 8. Elevated d-dimer 0.68 9. Elevated AST and ALT 39/65 10. Elevated creatinine 1.3 Dragon Disclaimer Dragon Disclaimer This electronic medical record was generated, in whole or in part, using a voice recognition dictation system. Discharge Summary Visit Information Final Diagnosis Problems Medical Problems: (1) 15[address] Status: Acute (2) Seizure Status: Acute Brief Hospital Course Allergies Allergies Coded Allergies Type Severity Reaction Last Updated Verified Sulfa (Sulfonamide Antibiotics) Allergy Intermediate 02/27/19 Yes tetanus and diphtheria toxoids Allergy Intermediate 02/27/19 Yes Vital Signs Vital Signs Date Time Temp Pulse Resp B/P (MAP) Pulse Ox O2 Delivery O2 Flow Rate FiO2 02/27/19 20:47 65 20 157/93 (114) 95 Room Air 02/27/19 19:15 97.4 Lab Results Laboratory Tests Test 02/27/19 19:20 02/27/19 20:20 White Blood Count 8.9 x10^3/uL (4.0-11.0) Red Blood Count 4.74 x10^6/uL (3.50-5.40) Hemoglobin 15.1 g/dL (12.0-15.5) Hematocrit 45.0 % (36.0-47.0) Mean Corpuscular Volume 95 fL (79-100) Mean Corpuscular Hemoglobin 32 pg (25-35) Mean Corpuscular Hemoglobin Concent 34 g/dL (31-37) Red Cell Distribution Width 13.7 % (11.5-14.5) Platelet Count 243 x10^3/uL (140-400) Neutrophils (%) (Auto) 60 % (31-73) Lymphocytes (%) (Auto) 28 % (24-48) Monocytes (%) (Auto) 7 % (0-9) Eosinophils (%) (Auto) 3 % (0-3) Basophils (%) (Auto) 1 % (0-3) Neutrophils # (Auto) 5.4 x10^3uL (1.8-7.7) Lymphocytes # (Auto) 2.5 x10^3/uL (1.0-4.8) Monocytes # (Auto) 0.6 x10^3/uL (0.0-1.1) Eosinophils # (Auto) 0.3 x10^3/uL (0.0-0.7) Basophils # (Auto) 0.1 x10^3/uL (0.0-0.2) Erythrocyte Sedimentation Rate 39 (0-25) Prothrombin Time 9.3 SEC (9.4-11.4) Prothromb Time International Ratio 0.9 (0.9-1.1) Activated Partial Thromboplast Time 21 SEC (23-33) D-Dimer (Pamela) 0.68 mg/L (0.00-0.50) Sodium Level 141 mmol/L (136-145) Potassium Level 3.8 mmol/L (3.5-5.1) Chloride Level 102 mmol/L (98-107) Carbon Dioxide Level 31 mmol/L (21-32) Anion Gap 8 (6-14) Blood Urea Nitrogen 19 mg/dL (7-20) Creatinine 1.3 mg/dL (0.6-1.0) Estimated GFR (Cockcroft-Gault) 42.1 Glucose Level 79 mg/dL (70-99) Calcium Level 9.7 mg/dL (8.5-10.1) Magnesium Level 2.1 mg/dL (1.8-2.4) Total Bilirubin 0.4 mg/dL (0.2-1.0) Direct Bilirubin 0.1 mg/dL (0.0-0.2) Aspartate Amino Transf (AST/SGOT) 39 U/L (15-37) Alanine Aminotransferase (ALT/SGPT) 65 U/L (14-59) Alkaline Phosphatase 73 U/L (46-116) Creatine Kinase 127 U/L (26-192) Troponin I Quantitative < 0.017 ng/mL (0-0.055) SX-Uwj-[id number]-Type Natriuretic Peptide 26 pg/mL (0-124) Total Protein 8.5 g/dL (6.4-8.2) Albumin 4.4 g/dL (3.4-5.0) Lipase 180 U/L (73-393) Urine Collection Type Unknown Urine Color Yellow Urine Clarity Clear Urine pH 6.5 Urine Specific Bath 1.010 Urine Protein Neg (NEG-TRACE) Urine Glucose (UA) Neg mg/dL (NEG) Urine Ketones (Stick) Neg mg/dL (NEG) Urine Blood Large (NEG) Urine Nitrite Neg (NEG) Urine Bilirubin Neg (NEG) Urine Urobilinogen Dipstick 0.2 mg/dL (0.2 mg/dL) Urine Leukocyte Esterase Neg (NEG) Urine RBC 3-5 /HPF (0-2) Urine WBC 1-4 /HPF (0-4) Urine Squamous Epithelial Cells Occ /LPF Urine Bacteria Few /HPF (0-FEW) Urine Mucus Slight /LPF Urine Opiates Screen Neg (NEG) Urine Methadone Screen Neg (NEG) Urine Barbiturates Neg (NEG) Urine Phencyclidine Screen Neg (NEG) Urine Amphetamine/Methamphetamine Pos (NEG) Urine Benzodiazepines Screen Neg (NEG) Urine Cocaine Screen Neg (NEG) Urine Cannabinoids Screen Neg (NEG) Urine Ethyl Alcohol Neg (NEG) Brief Hospital Course Ms. Garnett is a 59 old FEMALE who presented with hx seizure. Admitted Dr. Rebolledo Discharge Information Condition at Discharge: Improved Dischare Medications Current Medications Lactated Ringer's 1,000 ml @ 1,000 mls/hr Q1H IV Last administered on 02/27/19at 19:31; Admin Dose 1,000 MLS/HR; Start 02/27/19 at 19:30; Stop 02/27/19 at 20:29; Status DC Lorazepam (Ativan Inj) 1 mg 1X ONCE IV Last administered on 02/27/19at 20:01; Admin Dose 1 MG; Start 02/27/19 at 20:00; Stop 02/27/19 at 20:01; Status DC Levetiracetam 1000 mg/Sodium Chloride 100 ml @ 400 mls/hr 1X ONCE IV Last administered on 02/27/19at 20:32; Admin Dose 400 MLS/HR; Start 02/27/19 at 20:00; Stop 02/27/19 at 20:14; Status DC Sodium Chloride 100 ml @ As Directed STK-MED ONCE .ROUTE ; Start 02/27/19 at 19:48; Stop 02/27/19 at 19:49; Status DC Levetiracetam (Keppra) 500 mg STK-MED ONCE IV ; Start 02/27/19 at 19:49; Stop 02/27/19 at 19:50; Status DC Ondansetron HCl (Zofran) 4 mg PRN Q4HRS PRN IV NAUSEA/VOMITING; Start 02/27/19 at 20:45; Stop 02/28/19 at 20:44 Lorazepam (Ativan Inj) 2 mg 1X PRN PRN IV seizure; Start 02/27/19 at 20:45 Enoxaparin Sodium (Lovenox 80mg Syringe) 80 mg BID SQ Last administered on 02/27/19at 23:39; Admin Dose 80 MG; Start 02/27/19 at 21:00 Active Scripts Active Ativan (Lorazepam) 1 Mg Tablet 1 Mg PO PRN Q8HRS PRN Reported Aspir-Low (Aspirin) 81 Mg Tablet.dr 1 Tab PO DAILY Omeprazole 40 Mg Capsule.dr 40 Mg PO BID Gabapentin 300 Mg Capsule 300 Mg PO TID PRN PRN Meclizine Hcl 25 Mg Tablet 25 Mg PO QIDPRN PRN Vyvanse (Lisdexamfetamine Dimesylate) 70 Mg Capsule 70 Mg PO DAILY Iron (Ferrous Sulfate) 325 Mg Tablet 325 Mg PO QMWF Colace (Docusate Sodium) 100 Mg Capsule 100 Mg PO QMWFSA Alendronate Sodium 70 Mg Tablet 70 Mg PO WEEKLY Propranolol Hcl 120 Mg Cap.sa.24h 120 Mg PO DAILY Bupropion Xl (Bupropion HCl) 450 Mg Tab.er.24h 450 Mg PO DAILY Trintellix (Vortioxetine Hydrobromide) 20 Mg Tablet 20 Mg PO DAILY Levothyroxine Sodium 175 Mcg Tablet 175 Mcg PO DAILY Dragon Disclaimer This chart was dictated in whole or in part using Voice Recognition software in a busy, high-work load, and often noisy Emergency Department environment. It may contain unintended and wholly unrecognized errors or omissions. ADIA JUAN MD February 27, 2019 19:12
[2019-02-27] MEDS ORDERED: IV RINGERS SOLUTION,LACTATED 1,000 ML IV SCH (19:30)
[2019-02-27 19:44] LABS: BASO # 0.1 x10^3/uL (0.0-0.2); BASO % 1 % (0-3); EOS # 0.3 x10^3/uL (0.0-0.7); EOS % 3 % (0-3); HEMOGLOBIN 15.1 g/dL (12.0-15.5); LYMPH # 2.5 x10^3/uL (1.0-4.8); LYMPH % 28 % (24-48); MEAN CORPUSCULAR HEMOGLOBIN 32 pg (25-35); MEAN CORPUSCULAR HGB CONC 34 g/dL (31-37); MEAN CORPUSCULAR VOLUME 95 fL (79-100); MONO # 0.6 x10^3/uL (0.0-1.1); MONO % 7 % (0-9); NEUT # 5.4 x10^3uL (1.8-7.7); NEUT % 60 % (31-73); PLATELET COUNT 243 x10^3/uL (140-400); RED BLOOD COUNT 4.74 x10^6/uL (3.50-5.40); RED CELL DISTRIBUTION WIDTH 13.7 % (11.5-14.5); WHITE BLOOD COUNT 8.9 x10^3/uL (4.0-11.0)
[2019-02-27] MEDS ORDERED: IV NORMAL SALINE 100ML 100 ML ONE (19:48)
[2019-02-27] MEDS ORDERED: levETIRAcetam 500 MG/5 ML VIAL IV ONE (19:49)
[2019-02-27 20:07] LABS: ALBUMIN 4.4 g/dL (3.4-5.0); CALCIUM 9.7 mg/dL (8.5-10.1); CREATININE 1.3 mg/dL (0.6-1.0); DIRECT BILIRUBIN 0.1 mg/dL (0.0-0.2); GFR 42.1; MAGNESIUM 2.1 mg/dL (1.8-2.4); POTASSIUM 3.8 mmol/L (3.5-5.1); TOTAL BILIRUBIN 0.4 mg/dL (0.2-1.0); TOTAL PROTEIN 8.5 g/dL (6.4-8.2)
--- NOTE | 2019-02-27 20:33 | RAD ---
EXAM: CT Head without IV contrast CLINICAL HISTORY: Seizure COMPARISON: 12/26/2018 TECHNIQUE: Routine CT of the head without contrast. Soft tissues and bone windows were reviewed. PQRS compliance statement - One or more of the following individualized dose reduction techniques were utilized for this study: 1. Automated exposure control 2. Adjustment of the mA and/or kV according to patient size 3. Use of iterative reconstruction technique FINDINGS: There is no evidence of hemorrhage, mass or extra-axial fluid collection. Cho-white differentiation is maintained with no evidence of edema. There is no mass effect or shift of the intracranial structures. The ventricles, basilar cisterns and cortical sulci are normal in size and configuration for the patients stated age. The cerebellum and brainstem are unremarkable. The calvarium demonstrates no evidence of fracture or focal lesion. There is normal aeration of the visualized paranasal sinuses and mastoid air cells. The visualized portions of the orbits are normal. IMPRESSION: No evidence for acute intracranial process. Electronically signed by: Bobby Villalpando MD (02/27/2019 8:30 PM) [id number]
[2019-02-27 20:41] LABS: BARBITURATES NEG (NEG); BENZODIAZEPINES NEG (NEG); CANNABINOIDS NEG (NEG); COCAINE NEG (NEG); METHADONE NEG (NEG); OPIATES NEG (NEG); PHENCYCLIDINE NEG (NEG)
[2019-02-27 20:42] LABS: AMPHETAMINE/METHAMPHETAMINE POS (NEG)
[2019-02-27] MEDS ORDERED: ONDANSETRON PF 4 MG/2 ML VIAL. IV PRN (20:45)
[2019-02-27 20:53] LABS: CLARITY,URINE CLEAR; COLOR,URINE YELLOW
[2019-02-27 20:54] LABS: BACTERIA,URINE FEW /HPF (0-FEW); BILIRUBIN,URINE NEG (NEG); GLUCOSE,URINE NEG (NEG); NITRITE,URINE NEG (NEG); SQUAMOUS EPITHELIAL CELL,UR OCC /LPF; UROBILINOGEN,URINE 0.2 mg/dL (0.2 mg/dL)
[2019-02-27 20:57] LABS: SEDIMENTATION RATE 39 (0-25)
--- NOTE | 2019-02-27 21:14 | RAD ---
PA and lateral chest radiographs 02/27/2019 CLINICAL HISTORY: History of shortness of breath. Unexplained seizure. PA and lateral digital radiographs of the chest were obtained. Comparison study is dated 12/27/2018. The cardiac silhouette is borderline enlarged. The thoracic aorta is mildly tortuous. No acute pulmonary infiltrate is seen. No pleural effusion or pneumothorax is noted. Surgical clips are seen within the right upper quadrant of the abdomen consistent with a cholecystectomy. Very mild S-shaped curvature of the thoracolumbar spine is seen. Degenerative changes are seen involving the thoracic spine. IMPRESSION: No acute abnormality is seen. Electronically signed by: Bharathi Ramirez MD (02/27/2019 9:11 PM) [facility]
[2019-02-27] MEDS ORDERED: CONTRAST GIVEN MC PRN (21:15)
[2019-02-27] MEDS ORDERED: ANTI-COAG MONITOR BY PHARMACY. MC PRN (21:15)
[2019-02-27] MEDS ORDERED: IOHEXOL 350 MG/ML 100 ML VIAL. IV ONE (21:30)
[2019-02-27] MEDS ORDERED: cloNIDine TTS-2 1 PATCH PATCH TD ONE (21:30)
--- NOTE | 2019-02-27 21:48 | RAD ---
CTA scan of the Chest with Contrast (Pulmonary Embolism protocol) 02/27/2019 Clinical History: Near syncope. Elevated d-dimer. Technique: After the intravenous administration of 90 cc of Omnipaque 350, contiguous, 0.625 mm axial sections were obtained through the chest. 2 mm axial and 3D MIP coronal and sagittal reconstructed images were obtained. One or more of the following individualized dose reduction techniques were utilized for this study: 1. Automated exposure control. 2. Adjustment of the mA and/or kV according to patient size. 3. Use of iterative reconstruction technique. Findings: No filling defect is seen within the major branches of either pulmonary artery. There is no CT evidence of pulmonary embolism. The heart is mildly enlarged. Atherosclerotic calcification thoracic aorta is seen. The thoracic aorta is mildly tortuous but tapers normally. Patchy perihilar infiltrates are seen involving both lungs which may reflect pulmonary edema. Clinical correlation is recommended. No pneumothorax or pleural effusion is seen. Impression: There is no CT evidence of pulmonary embolism. Electronically signed by: Bharathi Ramirez MD (02/27/2019 9:45 PM) [facility]
[2019-02-27 23:00] VITALS: BP 158/82
[2019-02-27] MEDS: ENOXAPARIN ** NOTE DOSE ** SYRINGE SQ SCH (23:39)
[2019-02-28 04:35] VITALS: BP 113/71
[2019-02-28] MEDS ORDERED: LORazepam 1 MG TABLET PO PRN (06:30)
[2019-02-28] MEDS ORDERED: MECLIZINE 12.5 MG TABLET. PO PRN (06:45)
[2019-02-28 06:49] LABS: BASO % 1 % (0-3); EOS # 0.3 x10^3/uL (0.0-0.7); EOS % 4 % (0-3); HEMATOCRIT 39.1 % (36.0-47.0); HEMOGLOBIN 13.2 g/dL (12.0-15.5); LYMPH # 2.4 x10^3/uL (1.0-4.8); LYMPH % 31 % (24-48); MEAN CORPUSCULAR HEMOGLOBIN 32 pg (25-35); MEAN CORPUSCULAR HGB CONC 34 g/dL (31-37); MEAN CORPUSCULAR VOLUME 95 fL (79-100); MONO # 0.5 x10^3/uL (0.0-1.1); MONO % 6 % (0-9); NEUT # 4.4 x10^3uL (1.8-7.7); NEUT % 58 % (31-73); PLATELET COUNT 191 x10^3/uL (140-400); RED BLOOD COUNT 4.11 x10^6/uL (3.50-5.40); RED CELL DISTRIBUTION WIDTH 13.7 % (11.5-14.5); WHITE BLOOD COUNT 7.6 x10^3/uL (4.0-11.0)
[2019-02-28 07:00] VITALS: BP 113/97
[2019-02-28 07:39] LABS: CALCIUM 8.9 mg/dL (8.5-10.1); CREATININE 1.2 mg/dL (0.6-1.0); GFR 46.1; POTASSIUM 3.3 mmol/L (3.5-5.1)
[2019-02-28] MEDS ORDERED: LEVOTHYROXINE 175 MCG TABLET PO SCH (08:00)
[2019-02-28] MEDS ORDERED: IPRATRPIUM/ALBUTEROL 0.5/2.5MG 3 ML NEBU. NEB SCH (08:00)
--- NOTE | 2019-02-28 08:17 | EKG ---
[address] [address] Test Date: 2019-02-27 Test Time: 19:38:33 Pat Name: PHILLIP VELA Department: Room: Gender: F Stave Grader: : 1960 Requested By: ADIA JUAN Order Number: [id number] Reading MD: Measurements Intervals [place] Rate: 58 P: 47 AR: 208 QRS: -18 QRSD: 96 T: 52 QT: 434 QTc: 430 Interpretive Statements SINUS RHYTHM LEFTWARD AXIS R-S TRANSITION ZONE IN V LEADS DISPLACED TO THE LEFT QRS(T) CONTOUR ABNORMALITY CONSIDER ANTEROSEPTAL MYOCARDIAL DAMAGE POSSIBLY ABNORMAL ECG RI6.01 No previous ECG available for comparison
[2019-02-28] MEDS: NON FORMULARY ITEM (Vortioxetine Hydrobromide (Trintellix) 20 MG) PO SCH (09:00)
[2019-02-28] MEDS: PROPRANOLOL ER 60 MG CAP.SA.24H. PO SCH (09:00)
[2019-02-28] MEDS ORDERED: NON FORMULARY ITEM (Alendronate Sodium 70 MG) PO SCH (09:00)
[2019-02-28] MEDS ORDERED: ASPIRIN 81 MG TAB.CHEW PO SCH (09:00)
[2019-02-28] MEDS: NON FORMULARY ITEM (Lisdexamfetamine Dimesylate (Vyvanse) 70 MG) PO SCH (09:00)
[2019-02-28] MEDS ORDERED: GABAPENTIN 300 MG CAPSULE. PO PRN (09:00)
[2019-02-28] MEDS: levETIRAcetam 500 MG TABLET PO SCH ×2 (09:11→09:15)
[2019-02-28] MEDS: buPROPion XL 150 MG TAB.ER.24H PO SCH (09:12)
[2019-02-28] MEDS: ENOXAPARIN ** NOTE DOSE ** SYRINGE SQ SCH (09:13)
[2019-02-28] MEDS: ASPIRIN ENTERIC COATED 81 MG TABLET.DR. PO SCH (09:16)
[2019-02-28] MEDS: PANTOPRAZOLE 40 MG TABLET. PO SCH (09:17)
[2019-02-28] MEDS: ZONISAMIDE 100 MG CAPSULE. PO SCH ×3 (10:00→21:21)
[2019-02-28] MEDS ORDERED: IPRATRPIUM/ALBUTEROL 0.5/2.5MG 3 ML NEBU. NEB PRN (10:45)
[2019-02-28 11:12] VITALS: BP 143/93
[2019-02-28] MEDS ORDERED: POTASSIUM CHLORIDE 20 MEQ TABLET.ER. PO ONE (11:45)
[2019-02-28] MEDS ORDERED: LEVOTHYROXINE 125 MCG TABLET PO ONE (14:30)
[2019-02-28 15:30] VITALS: BP 106/65
[2019-02-28] MEDS ORDERED: ENOXAPARIN 40 MG/0.4 ML SYRINGE. SQ SCH (15:45)
[2019-02-28 20:00] VITALS: BP 118/68
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
--- NOTE | 2019-02-28 22:47 | RAD ---
Bilateral lower extremity venous Doppler: Reason for examination: Elevated d-dimer. The right and left lower extremity venous systems were evaluated from the common femoral and greater saphenous veins distally to the calf veins with grayscale imaging, color-flow dimension and spectral analysis. There is no evidence of deep venous thrombosis. There is normal response of the venous systems to compression and augmentation. IMPRESSION: No deep venous thrombosis in the right or left lower extremity. Electronically signed by: Bren Thomas MD (02/28/2019 10:44 PM) [facility]
[2019-03-01 01:10] VITALS: BP 125/66
[2019-03-01 05:09] VITALS: BP 136/73
[2019-03-01] MEDS ORDERED: LEVOTHYROXINE 150 MCG TABLET PO SCH (06:00)
[2019-03-01] MEDS: PANTOPRAZOLE 40 MG TABLET. PO SCH (08:04)
[2019-03-01] MEDS: NON FORMULARY ITEM (Vortioxetine Hydrobromide (Trintellix) 20 MG) PO SCH (08:39)
[2019-03-01] MEDS: NON FORMULARY ITEM (Lisdexamfetamine Dimesylate (Vyvanse) 70 MG) PO SCH (08:39)
[2019-03-01] MEDS: ASPIRIN ENTERIC COATED 81 MG TABLET.DR. PO SCH (08:46)
[2019-03-01] MEDS: PROPRANOLOL ER 60 MG CAP.SA.24H. PO SCH (08:46)
[2019-03-01] MEDS: ZONISAMIDE 100 MG CAPSULE. PO SCH (08:47)
[2019-03-01] MEDS: buPROPion XL 150 MG TAB.ER.24H PO SCH (08:47)
[2019-03-01 11:30] VITALS: BP 161/81
[2019-03-01] MEDS ORDERED: ONDANSETRON ODT 4 MG TAB.RAPDIS PO PRN (11:30)
[2019-03-01] MEDS ORDERED: ONDANSETRON ODT 4 MG TAB.RAPDIS PO ONE (12:45)
[2019-03-01] MEDS ORDERED: ZONI100C33 PO (12:53)
[2019-03-01] MEDS ORDERED: DOCUSATE SODIUM 100 MG CAPSULE PO SCH (16:00)
[2019-03-01] MEDS ORDERED: FERROUS SULFATE 325 MG TABLET. PO SCH (16:00)
--- NOTE | 2019-03-01 21:21 | CONS ---
DATE OF CONSULTATION: 02/28/2019 NEUROLOGICAL CONSULT REFERRING PHYSICIAN: Jorje Rebolledo M.D. REASON FOR CONSULTATION: Breakthrough seizure. HISTORY OF PRESENT ILLNESS: This is a 59-year-old right-handed female, who is known to me from followup with a long history of seizure disorder and migraine headaches. The patient is supposed to be on Zonegran for the seizures. However, she has not been compliant with the medications and she stopped taking the Zonegran a month ago. Today, she was found having a spell described as a generalized tonic-clonic seizure. However, the patient denies that and she stated she did not recall any spells and she did not have any seizure. She denies migraine headaches, visual disturbances, nausea, vomiting, chest pain, shortness of breath, or palpitation. The patient has been feeling tired for a while. She was admitted through the Emergency Room after activating EMS. In the Emergency Room, the patient was loaded with Keppra, and since that time, she has not had any recurrent seizures. PAST MEDICAL HISTORY: Significant for short-term memory loss, heart disease, hypotension, sleep apnea, gastroesophageal reflux disease, osteoarthritis, osteopenia, lower back pain that required surgery, hypothyroidism, anxiety, depression, and posttraumatic stress disorder. The patient has a longstanding history of seizure etiology and ____. PAST SURGICAL HISTORY: Significant for a D and C, tubal ligation, and low back surgery. FAMILY HISTORY: Mother had kidney disease, hypertension along with COPD. Father has hyperlipidemia, diabetes mellitus. Aunt had breast cancer. CURRENT HOME MEDICATIONS: Albuterol inhaler, aspirin, folic acid 800 mg, Wellbutrin, ferrous sulfate, gabapentin, lorazepam, ____, pantoprazole, ____, long-acting zonisamide or Zonegran. ALLERGIES: She does have some allergies. SOCIAL HISTORY: The patient is . She denies smoking, alcohol drinking, or illicit drug use. REVIEW OF SYSTEMS: A 10-point review of systems was performed and is as mentioned above in the history of present illness. PHYSICAL EXAMINATION: GENERAL: A well-developed, well-nourished female, not in acute distress. She weighs 85 pounds. VITAL SIGNS: Blood pressure 130/97, respiratory rate 15, pulse 68, oxygen saturation 95% on 2 liters via nasal cannula, and temperature 98.1. HEENT: Normocephalic, atraumatic; otherwise, unremarkable. NECK: Supple. Negative for carotid bruit or lymphadenopathy. LUNGS: Clear to A and P. CARDIOVASCULAR: Regular rate and rhythm. Normal S1 and S2. There is a 3/6 systolic murmur. ABDOMEN: Soft. Bowel sounds are positive. No palpable masses, organomegaly, or tenderness. EXTREMITIES: Negative for cyanosis, clubbing, or pitting edema. NEUROLOGIC: Mental status: The patient is alert and oriented x3. The speech is fluent. There is no language dysfunction. Memory, the patient recalls 2/3 immediately and after 1 and 3 minutes. Judgment and abstracting thinking are normal. The patient denies hallucination or delusion. CRANIAL NERVES: Visual lee are full. The pupils are reactive to light and accommodation. The extraocular movements are intact. There is no nystagmus. There is no facial motor or sensory deficit. Hearing is intact bilaterally. The palate is elevated symmetrically. Sternocleidomastoid muscles are powerful bilaterally. The patient shrugs her shoulders symmetrically and protrudes her tongue in the midline without fasciculation or atrophy. MOTOR: No focal muscle bulk was seen. The tone is normal. The strength is 4/5 throughout. Sensory examination revealed diminished pinprick and light touch senses in patchy distributions in both lower extremities. Deep tendon reflexes were asymmetric and hypoactive with absent Achilles responses. Gait is not tested at this time. LABORATORY DATA: The CBC revealed white blood cells of 7.6 thousand, hemoglobin 13.2, hematocrit 39.1, platelet count 191,000. Chemistry revealed sodium of 142, potassium 3.3, chloride 103, CO2 30, BUN 13, creatinine 1.2, glucose 98, and calcium is 8.9. Urinalysis is negative for a urinary tract infection. Urine drug screen is negative. TSH is very high at 244.7. IMPRESSION: 1. Breakthrough seizure, probably due to noncompliance. According to the patient, she quit taking Zonegran a month prior to the admission. 2. History of migraines headaches, not present today. 3. Multiple medical problems include hypertension, hyperlipidemia, gastroesophageal reflux disease, osteoporosis, osteopenia, cardiac murmur, severe hypothyroidism, and hypokalemia. RECOMMENDATIONS: 1. Resume current medications for seizures, including Zonegran and to be started at 300 mg twice daily. 2. Discontinue Keppra. 3. Potassium replacement. 4. Continue with current management initiated by Dr. Rebolledo. M Anahi TUTTLE MD DR: TOMASA/asuncion JOB#: [id number] / [id number]
--- NOTE | 2019-03-01 21:55 | DS ---
DATE OF DISCHARGE: 03/01/2019 HOSPITAL COURSE: The patient came in with a witnessed seizure, grand mal seizure activity, somewhat postictal, had some nausea. The patient's labs are basically unremarkable. Apparently, she had come off her Zonegran medication and she had the seizure. Also, of interest was her TSH that was elevated to 245. Her potassium is slightly low, placed on electrolyte replacement. Otherwise, the patient did well. She was seen by Dr. Devlin. He placed her on Zonegran again and she made excellent progress and was discharged home. See ANDRÉS. IMPRESSION: Grand mal seizure, severe hypothyroidism, hypertension, elevated D-dimer, although CTA was negative. DISCHARGE PLAN: See ANDRÉS, low-sodium diet, decreased activity, and no driving until she sees Dr. Devlin for her EEG. ANAND VILLA MD DR: QUENTIN/asuncion JOB#: [id number] / [id number]
--- NOTE | 2019-03-02 03:52 | PN ---
DATE: SUBJECTIVE: The patient denies any new medical or neurological complaints. She continues to be tired. The patient stated that she told the ER doctor, she had seizure-like activities, but actually she did not have any clonic-tonic seizure according to her. The patient stated when she was in high school, she had a syncopal episode. She denies headaches, visual disturbances, nausea, vomiting, chest pain, shortness of breath or palpitation, dysarthria or dysphagia. OBJECTIVE: GENERAL: Well-developed, well-nourished female, not in acute distress. VITAL SIGNS: Blood pressure 136/73, respiratory rate 18, pulse is 64, temperature 98, oxygen saturation is 97% on 2 liters by nasal cannula. HEENT: Normocephalic, atraumatic, otherwise unremarkable. NECK: Supple. Negative for carotid bruit, lymphadenopathy or thyromegaly. LUNGS: Clear to A and P. CARDIOVASCULAR: Regular rate and rhythm, normal S1, S2. There is no S3, S4. There is a 2/6 systolic murmur. ABDOMEN: Soft. Bowel sounds positive. EXTREMITIES: Negative for cyanosis, clubbing or pitting edema. NEUROLOGICAL EXAM: Normal mental status and intact cranial nerves. There is no focal motor or sensory deficit. Deep tendon reflexes were symmetric and hypoactive without pathology responses. Gait not tested. DIAGNOSTIC DATA: Angio CT revealed no evidence of pulmonary embolism and venous ultrasound of the lower extremities revealed no evidence of DVT. IMPRESSION: 1. History of seizure and possible seizure-like activities. However, the patient denies generalized tonic-clonic seizure. 2. Migraine headaches. 3. Hypothyroidism. 4. Sleep apnea. RECOMMENDATIONS: Continue with current management. M Anahi TUTTLE MD DR: TOMASA/asuncion JOB#: [id number] / [id number]
== END 2019-03-01 13:22 | disposition home or self-care (01) | DRG 101 ==
LOC: ER 19:10 → ICU 21:00
PROVIDERS: ADMIT Family Medicine; ATTEND Family Medicine
DX: G40.409 Other generalized epilepsy and epileptic syndromes, not intractable, without status epilepticus (principal); E03.9 Hypothyroidism, unspecified; E78.5 Hyperlipidemia, unspecified; E87.6 Hypokalemia; F43.10 Post-traumatic stress disorder, unspecified; G43.909 Migraine, unspecified, not intractable, without status migrainosus; I12.9 Hypertensive chronic kidney disease with stage 1 through stage 4 chronic kidney disease, or unspecified chronic kidney disease; G47.30 Sleep apnea, unspecified; K21.9 Gastro-esophageal reflux disease without esophagitis; M81.0 Age-related osteoporosis without current pathological fracture; N18.3 Chronic kidney disease, stage 3 (moderate); E66.9 Obesity, unspecified; F32.9 Major depressive disorder, single episode, unspecified; F41.9 Anxiety disorder, unspecified; Z80.3 Family history of malignant neoplasm of breast; Z82.49 Family history of ischemic heart disease and other diseases of the circulatory system; Z82.5 Family history of asthma and other chronic lower respiratory diseases; Z68.34 Body mass index [BMI] 34.0-34.9, adult; Z83.3 Family history of diabetes mellitus; Z84.1 Family history of disorders of kidney and ureter; Z91.14 Patient's other noncompliance with medication regimen; Z90.49 Acquired absence of other specified parts of digestive tract; Z98.51 Tubal ligation status; Z88.7 Allergy status to serum and vaccine
CPT/HCPCS: 36415; 70450; 71046; 71275; 80048; 80076; 80307; 81001; 82550; 83690; 83735; 83880; 84443; 84484; 85025; 85379; 85610; 85651; 85730; 86705; 86709; 86803; 87340; 87641; 93005; 93970; 96361; 96365; 96375; J1650; J1953; J2060; J7120; Q0162; Q9967; 99285-25

== ENCOUNTER 2022-01-04 20:11 | Inpatient (IN) | payer BC ==
[~2022-01-04] VITALS: Ht 154.9 cm; Wt 85.1 kg
[~2022-01-04 20:11] MED LIST changes: -ALEN70TA6 PO; +ALEN70TA71 PO; +MECL-75 PO; -MECL25TA3 PO; -OMEP40CA5 PO; +OMEP40CA7 PO; -ZONI100C PO; +ZONI100C26 PO; +ZONI100C33 PO
--- NOTE | 2022-01-04 20:40 | PHYS DOC ---
Past History Past Medical History: Anxiety, GERD, Hypertension, Migraines, Seizure Past Surgical History: Cholecystectomy, Tubal ligation, Other Alcohol Use: None Drug Use: None General Adult EDM: Chief Complaint: NAUSEA/VOMITING/DIARRHEA HPI: HPI: ".. I v been vomiting now for 4 days.. can't keep anything down.. .. I ve had diarrhea now for a month.. My .. got diarrhea too... " Patient is a 61 year old female who presents with above hx of nausea, vomiting, diarrhea, generalized abdomen pain. Patient states she has had diarrhea for the past month. Patient states nothing seems to help. She has had nausea vomiting multiple times a day and even vomiting up her nausea meds. Patient denies any travel. No specific ill contacts. No history of bad food. No history of specific colitis or inflammatory bowel disorders. also has diarrhea he has been recently admitted and been on antibiotics. Patient denies any contact with ill animals. Patient also complaining of episodes of tachycardia associated with the nausea and vomiting. Patient has past medical history of short-term memory redefect, numbness of her tongue, cardiac disorders, heart murmur, hypertension, sleep apnea, obesity, GERD, reproductive disorders, D&Cs, miscarriages, tubal ligation, osteoarthritis, osteopenia, back surgery, hypothyroidism, depression, PTSD, stage III kidney disease, seizure disorder, elevated LFTs, hypothyroidism, and IBS. Pt. follows with Dr. Villa. Review of Systems: Review of Systems: Constitutional: Denies fever or chills Eyes: Denies change in visual acuity HENT: Denies nasal congestion or sore throat Respiratory: Denies cough or shortness of breath Cardiovascular: Complains of episodes of tachycardia. GI: Complains of abdominal pain, nausea, vomiting and diarrhea : Denies dysuria Musculoskeletal: Denies back pain or joint pain Integument: Denies rash Neurologic: Denies headache, focal weakness or sensory changes Endocrine: Denies polyuria or polydipsia Lymphatic: Denies swollen glands Psychiatric: Denies depression or anxiety Family History: Family History: has diarrhea recently admitted and on antibiotics. Her father has history of osteopenia and hypercholesterol and heart disease with diabetes. Mother had history osteopenia kidney disease hypertension diabetes congestive heart failure as well as COPD. Has had several aunts had breast cancer. Current Medications: Current Meds: See nursing for home meds Allergies: Allergies: Allergies Coded Allergies Type Severity Reaction Last Updated Verified Sulfa (Sulfonamide Antibiotics) Allergy Intermediate 02/27/19 Yes tetanus and diphtheria toxoids Allergy Intermediate 02/27/19 Yes Physical Exam: PE: Constitutional: moderate acute distress, non-toxic appearance. [] HENT: Normocephalic, atraumatic, bilateral external ears normal, oropharynx dry, no oral exudates, nose normal. [] Eyes: PERRLA, EOMI, conjunctiva normal, no discharge. [] Neck: Normal range of motion, no tenderness, supple, no stridor. [] Cardiovascular:Heart rate regular rhythm, no murmur [] PMI to the left. Lungs & Thorax: Bilateral breath sounds clear to auscultation [] Abdomen: Bowel sounds hyperactive, soft, no tenderness, no masses, no pulsatile masses. [] Old surgery scars Skin: Warm, dry, no erythema, no rash. [] Back: No tenderness, no CVA tenderness. [] Extremities: No tenderness, no cyanosis, no clubbing, ROM intact, no edema. No cording Neurologic: Alert and oriented X 3, normal motor function, normal sensory function, no focal deficits noted. [] Psychologic: Affect anxious, judgement normal, mood normal. [] EKG: EKG: My interpretation EKG shows a sinus rhythm at 71 bpm. There is some ST and T wave changes but overall morphology is not consistent with acute STEMI of contralateral changes. But would consider this an abnormal EKG time of EKG is 2127 hrs. . The repeat EKG shows a sinus rhythm at 65 bpm. Overall morphology is similar to prior EKG with the T wave changes. No findings of acute STEMI with contralateral changes. Time of this EKG is 000 49 seconds [] Third EKG shows a sinus bradycardia 60 bpm. Overall morphology is similar to prior EKGs. No findings of acute STEMI or contralateral changes. Does have slightly prolonged QT intervals on this 1 however at 496 ms and QTC at 501. Time of this EKG is 0203 hrs. Radiology/Procedures: Radiology/Procedures: [] Impressions: [address] [address] IMAGING REPORT Signed PATIENT: PHILLIP VELA ACCOUNT: [id number] : 1960 LOCATION: ER AGE: 61 SEX: F EXAM STATUS: REG ER ORD. PHYSICIAN: ADIA JUAN MD REASON: pain, n/v PROCEDURE: ACUTE ABDOMEN SERIES EXAM: Frontal view of the chest, AP views of the abdomen in upright and supine positions. CLINICAL INDICATION: Reason: pain, n/v / Spl. Instructions: / History: COMPARISON: None. FINDINGS: The heart is not enlarged. Mediastinal and hilar contours are normal. No focal parenchymal airspace opacity. No pleural effusion or pneumothorax. No abnormal small or large bowel dilatation. Moderate colonic stool content. No abnormal soft tissue mass effect. No suspicious calcifications are seen. No free intraperitoneal gas. Cholecystectomy clips noted. Moderate to severe degenerative changes at the L4-L5 and L5-S1 levels. IMPRESSION: 1. No acute cardiopulmonary process. 2. Nonobstructive bowel gas pattern. Electronically signed by: Marc Saldivar DO (01/04/2022 9:24 PM) [facility] DICTATED AND SIGNED BY: MARC SALDIVAR DO DATE: 01/04/222122 CC: ANAND VILLA MD; ADIA JUAN MD ~ Heart Score: C/O Chest Pain: No HEART Score for Chest Pain: HEART Score for Chest Pain Response (Comments) Value History Moderately Suspicious 1 ECG Nonspecific Repolarizatio 1 Age >45 - < 65 1 Risk Factors 1 or 2 Risk Factors 1 Troponin >1-<3x Normal Limit 1 Total 5 Risk Factors: Risk Factors: DM, Current or recent (<one month) smoker, HTN, HLP, family history of CAD, obesity. Risk Scores: Score 0 - 3: 2.5% MACE over next 6 weeks - Discharge Home Score 4 - 6: 20.3% MACE over next 6 weeks - Admit for Clinical Observation Score 7 - 10: 72.7% MACE over next 6 weeks - Early Invasive Strategies Course & Med Decision Making: Course & Med Decision Making Pertinent Labs and Imaging studies reviewed. (See chart for details) Plan admission to Dr. Villa and Cardiology consult. Cover for C-dif. Supplement potassium. Discussed presentation, testing and tx. plan with Dr. Villa. Impression 1. Dehydration 2. Nausea vomiting and diarrhea 3. Hypokalemia 3.2 4. Elevated hemoglobin 16.7 5. Diabetes glucose 152 6. Mild elevation in troponin 68.8-repeat 7. Elevation creatinine 1.7 [] Dragon Disclaimer: Dragon Disclaimer: This electronic medical record was generated, in whole or in part, using a voice recognition dictation system. Departure Departure: Referrals: ANAND VILLA MD (PCP) Scripts Atorvastatin Calcium (ATORVASTATIN CALCIUM) 40 Mg Tablet 1 TAB PO DAILY for hypercholesterolemia, #90 TAB 3 Refills Prov: ANAND VILLA MD 01/09/22 Aspirin (ASPIRIN EC) 81 Mg Tablet.dr 81 MG PO DAILY for heart health for 90 Days, #90 TAB 9 Refills Prov: ANAND VILLA MD 01/09/22 Dragon Disclaimer This chart was dictated in whole or in part using Voice Recognition software in a busy, high-work load, and often noisy Emergency Department environment. It may contain unintended and wholly unrecognized errors or omissions. Dragon Disclaimer This chart was dictated in whole or in part using Voice Recognition software in a busy, high-work load, and often noisy Emergency Department environment. It may contain unintended and wholly unrecognized errors or omissions. Dragon Disclaimer This chart was dictated in whole or in part using Voice Recognition software in a busy, high-work load, and often noisy Emergency Department environment. It may contain unintended and wholly unrecognized errors or omissions. ADIA JUAN MD Jan 04, 2022 20:40
[2022-01-04] MEDS ORDERED: ONDANSETRON PF 4 MG/2 ML VIAL. IVP ONE (20:45)
[2022-01-04] MEDS ORDERED: KETOROLAC 30 MG/ML VIAL. IVP ONE (20:45)
[2022-01-04] MEDS ORDERED: FAMOTIDINE 20 MG/2 ML VIAL IVP ONE (20:45)
[2022-01-04] MEDS ORDERED: IV RINGERS SOLUTION,LACTATED 1,000 ML IV SCH (20:45)
[2022-01-04 21:24] LABS: BASO # 0.1 x10^3/uL (0.0-0.2); BASO % 1 % (0-3); EOS # 0.1 x10^3/uL (0.0-0.7); EOS % 1 % (0-3); HEMATOCRIT 48.1 % (36.0-47.0); HEMOGLOBIN 16.7 g/dL (12.0-15.5); LYMPH % 10 % (24-48); MEAN CORPUSCULAR HEMOGLOBIN 32 pg (25-35); MEAN CORPUSCULAR HGB CONC 35 g/dL (31-37); MEAN CORPUSCULAR VOLUME 93 fL (79-100); MONO # 0.3 x10^3/uL (0.0-1.1); MONO % 4 % (0-9); NEUT # 8.5 x10^3uL (1.8-7.7); NEUT % 85 % (31-73); PLATELET COUNT 205 x10^3/uL (140-400); RED BLOOD COUNT 5.17 x10^6/uL (3.50-5.40); RED CELL DISTRIBUTION WIDTH 14.5 % (11.5-14.5)
--- NOTE | 2022-01-04 21:27 | RAD ---
EXAM: Frontal view of the chest, AP views of the abdomen in upright and supine positions. CLINICAL INDICATION: Reason: pain, n/v / Spl. Instructions: / History: COMPARISON: None. FINDINGS: The heart is not enlarged. Mediastinal and hilar contours are normal. No focal parenchymal airspace o pacity. No pleural effusion or pneumothorax. No abnormal small or large bowel dilatation. Moderate colonic stool content. No abnormal soft tissu e mass effect. No suspicious calcifications are seen. No free intraperitoneal gas. Cholecystectomy clips noted. Moderate to severe degenerative changes at the L4-L5 and L5-S1 levels. IMPRESSION: 1. No acute cardiopulmonary process. 2. Nonobstructive bowel gas pattern. Electronically signed by: Gus Saldivar DO (01/04/2022 9:24 PM) [facility]
[2022-01-04 21:41] LABS: INFLUENZA A PATIENT NEGATIVE (NEGATIVE); INFLUENZA B PATIENT NEGATIVE (NEGATIVE)
[2022-01-04 21:42] LABS: CALCIUM 9.3 mg/dL (8.5-10.1); CREATININE 1.7 mg/dL (0.6-1.0); GFR 30.7; POTASSIUM 3.2 mmol/L (3.5-5.1)
--- NOTE | 2022-01-04 21:42 | EKG ---
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
[2022-01-04 21:48] LABS: ALBUMIN 4.4 g/dL (3.4-5.0); DIRECT BILIRUBIN 0.2 mg/dL (0.0-0.2); TOTAL BILIRUBIN 1.2 mg/dL (0.2-1.0); TOTAL PROTEIN 7.7 g/dL (6.4-8.2)
[2022-01-04 23:22] LABS: BACTERIA,URINE 0 /HPF (0-FEW); BARBITURATES NEG (NEG); BENZODIAZEPINES NEG (NEG); CANNABINOIDS NEG (NEG); CLARITY,URINE CLEAR; COCAINE NEG (NEG); COLOR,URINE YELLOW; GLUCOSE,URINE NEG (NEG); METHADONE NEG (NEG); NITRITE,URINE NEG (NEG); OPIATES NEG (NEG); PHENCYCLIDINE NEG (NEG); RBC,URINE 0 /HPF (0-2); SQUAMOUS EPITHELIAL CELL,UR MOD /LPF; UROBILINOGEN,URINE 0.2 mg/dL (0.2 mg/dL); WBC,URINE OCC /HPF (0-4)
[2022-01-04 23:24] LABS: AMPHETAMINE/METHAMPHETAMINE POS (NEG)
[2022-01-05] MEDS ORDERED: POTASSIUM CHLORIDE 20 MEQ TABLET.ER. PO ONE (00:15)
[2022-01-05] MEDS ORDERED: IV RINGERS SOLUTION,LACTATED 1,000 ML IV ONE (00:15)
--- NOTE | 2022-01-05 00:27 | EKG ---
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
[2022-01-05] MEDS ORDERED: PROCHLORPERAZINE 10 MG/2 ML VIAL. IV ONE (00:30)
[2022-01-05] MEDS ORDERED: metroNIDAZOLE 500 MG TABLET PO ONE (00:30)
[2022-01-05] MEDS ORDERED: diphenhydrAMINE 50 MG/ML VIAL IVP ONE (00:30)
[2022-01-05] MEDS ORDERED: ACETAMINOPHEN 325 MG TABLET PO PRN (00:45)
[2022-01-05] MEDS ORDERED: ONDANSETRON PF 4 MG/2 ML VIAL. IVP PRN (00:45)
--- NOTE | 2022-01-05 02:33 | EKG ---
[address] [address] Test Date: 2022-01-05 Test Time: 02:02:44 Pat Name: PHILLIP VELA Department: Room: 121 A Gender: F Slimer: ESHA : 1960 Requested By: ADIA JUAN Order Number: [id number] Reading MD: Madhu Huitron Measurements Intervals [place] Rate: 55 P: 54 IN: 202 QRS: 4 QRSD: 94 T: 154 QT: 552 QTc: 531 Interpretive Statements SINUS RHYTHM OLD INFERIOR INFARCT Electronically Signed On 01-05-2022 8:59:32 CDT by Madhu Huitron
[2022-01-05 07:52] VITALS: BP 94/66
[2022-01-05] MEDS: IPRATRPIUM/ALBUTEROL 0.5/2.5MG 3 ML NEBU. NEB SCH ×4 (08:00→20:00)
--- NOTE | 2022-01-05 08:05 | PDOC2 ---
CARDIAC CONSULT DATE OF CONSULT DOS: DATE: 01/05/22 TIME: 07:55 REASON FOR CONSULT Reason for Consult Elevated troponin REFERRING PHYSICIAN Referring Physician Dr. Plummer SOURCE Source: Chart review, Patient HPI History of Present Illness This is a 61 yo female who presented secondary to nausea/vomiting, diarrhea, and abdominal pain. Troponin level noted to be elevated, which prompted this consult. Patient reports diarrhea for the last month. Has also been experiencing nausea/vomiting since Wednesday. has also experienced diarrhea. She denies any chest pain, palpitations, dizziness, or diaphoresis. No prior h/o CAD or recent cardiac workup. PAST MEDICAL HISTORY Pulmonary: Other (ARETHA) CENTRAL NERVOUS SYSTEM: Migraine, Seizure GI: GERD Musculoskeletal: Osteoarthritis Endocrine: Hypothyroidism PAST SURGICAL HISTORY Past Surgical History: Tubal Ligation FAMILY HISTORY Family History: Heart Disease, Hypertension SOCIAL HISTORY Smoke: No ALCOHOL: none Drugs: None Lives: with Family CURRENT MEDICATIONS Current Medications Current Medications Lactated Ringer's 1,000 ml @ 1,000 mls/hr Q1H IV Last administered on 01/04/22at 21:03; Start 01/04/22 at 20:45; Stop 01/04/22 at 21:44; Status DC Ondansetron HCl (Zofran) 8 mg 1X ONCE IVP Last administered on 01/04/22at 21:04; Start 01/04/22 at 20:45; Stop 01/04/22 at 20:53; Status DC Famotidine (Pepcid Vial) 20 mg 1X ONCE IVP Last administered on 01/04/22at 21:03; Start 01/04/22 at 20:45; Stop 01/04/22 at 20:53; Status DC Ketorolac Tromethamine (Toradol 30mg Vial) 30 mg 1X ONCE IVP Last administered on 01/04/22at 21:03; Start 01/04/22 at 20:45; Stop 01/04/22 at 20:53; Status DC Lactated Ringer's 1,000 ml @ 1,000 mls/hr 1X ONCE IV Last administered on 01/05/22at 00:49; Start 01/05/22 at 00:15; Stop 01/05/22 at 01:14; Status DC Potassium Chloride (Klor-Con) 40 meq 1X ONCE PO Last administered on 01/05/22at 00:51; Start 01/05/22 at 00:15; Stop 01/05/22 at 00:17; Status DC Metronidazole (Flagyl) 500 mg 1X ONCE PO Last administered on 01/05/22at 00:49; Start 01/05/22 at 00:30; Stop 01/05/22 at 00:31; Status DC Diphenhydramine HCl (Benadryl) 50 mg 1X ONCE IVP Last administered on 01/05/22at 00:49; Start 01/05/22 at 00:30; Stop 01/05/22 at 00:31; Status DC Prochlorperazine Edisylate (Compazine) 10 mg 1X ONCE IV Last administered on 01/05/22at 00:50; Start 01/05/22 at 00:30; Stop 01/05/22 at 00:31; Status DC Ondansetron HCl (Zofran) 4 mg PRN Q4HRS PRN IVP NAUSEA/VOMITING; Start 01/05/22 at 00:45; Stop 01/06/22 at 00:44 Acetaminophen (Tylenol) 650 mg PRN Q4HRS PRN PO FEVER > 100.3'F; Start 01/05/22 at 00:45; Stop 01/06/22 at 00:44 Albuterol/ Ipratropium (Duoneb) 3 ml RTQID NEB ; Start 01/05/22 at 08:00; Stop 01/06/22 at 07:59 Metronidazole (Flagyl) 500 mg TID PO ; Start 01/05/22 at 09:00 Active Scripts Active Zonegran (Zonisamide) 100 Mg Capsule 200 Mg PO BID 30 Days Ativan (Lorazepam) 1 Mg Tablet 1 Mg PO PRN Q8HRS PRN Reported Aspir-Low (Aspirin) 81 Mg Tablet.dr 1 Tab PO DAILY Omeprazole 40 Mg Capsule.dr 40 Mg PO BID Meclizine Hcl 25 Mg Tablet 25 Mg PO QIDPRN PRN Vyvanse (Lisdexamfetamine Dimesylate) 70 Mg Capsule 70 Mg PO DAILY Iron (Ferrous Sulfate) 325 Mg Tablet 325 Mg PO QMWF Colace (Docusate Sodium) 100 Mg Capsule 100 Mg PO QMWFSA Alendronate Sodium 70 Mg Tablet 70 Mg PO WEEKLY Propranolol Hcl 120 Mg Cap.sa.24h 120 Mg PO DAILY Bupropion Xl (Bupropion HCl) 450 Mg Tab.er.24h 450 Mg PO DAILY Trintellix (Vortioxetine Hydrobromide) 20 Mg Tablet 20 Mg PO DAILY Levothyroxine Sodium 175 Mcg Tablet 175 Mcg PO DAILY ALLERGIES Allergies: Coded Allergies: Sulfa (Sulfonamide Antibiotics) (Verified Allergy, Intermediate, 02/27/19) tetanus and diphtheria toxoids (Verified Allergy, Intermediate, 02/27/19) ROS Review of Systems 14 point ROS conducted with pertinent positives noted above in HPI PHYSICAL EXAM General: Alert, Oriented X3, Cooperative, No acute distress HEENT: Atraumatic Lungs: Clear to auscultation Heart: Regular rate Abdomen: Soft, No tenderness Extremities: No edema, Normal pulses Skin: No breakdown Neuro: Normal speech, Sensation intact Psych/Mental Status: Mental status NL, Other (flat affect ) MUSCULOSKELETAL: Osteoarthritic changes both hands VITALS Vital Signs Vital Signs Date Time Temp Pulse Resp B/P (MAP) Pulse Ox O2 Delivery O2 Flow Rate FiO2 01/05/22 07:52 97.8 62 16 94/66 (75) 88 Room Air LABS LABS Laboratory Tests Test 01/04/22 20:55 01/04/22 21:10 01/04/22 22:40 01/04/22 23:51 White Blood Count 10.0 x10^3/uL (4.0-11.0) Red Blood Count 5.17 x10^6/uL (3.50-5.40) Hemoglobin 16.7 g/dL (12.0-15.5) Hematocrit 48.1 % (36.0-47.0) Mean Corpuscular Volume 93 fL (79-100) Mean Corpuscular Hemoglobin 32 pg (25-35) Mean Corpuscular Hemoglobin Concent 35 g/dL (31-37) Red Cell Distribution Width 14.5 % (11.5-14.5) Platelet Count 205 x10^3/uL (140-400) Neutrophils (%) (Auto) 85 % (31-73) Lymphocytes (%) (Auto) 10 % (24-48) Monocytes (%) (Auto) 4 % (0-9) Eosinophils (%) (Auto) 1 % (0-3) Basophils (%) (Auto) 1 % (0-3) Neutrophils # (Auto) 8.5 x10^3uL (1.8-7.7) Lymphocytes # (Auto) 1.0 x10^3/uL (1.0-4.8) Monocytes # (Auto) 0.3 x10^3/uL (0.0-1.1) Eosinophils # (Auto) 0.1 x10^3/uL (0.0-0.7) Basophils # (Auto) 0.1 x10^3/uL (0.0-0.2) Prothrombin Time 10.3 SEC (9.4-11.4) Prothromb Time International Ratio 1.0 (0.9-1.1) Activated Partial Thromboplast Time 24 SEC (23-33) Sodium Level 137 mmol/L (136-145) Potassium Level 3.2 mmol/L (3.5-5.1) Chloride Level 99 mmol/L (98-107) Carbon Dioxide Level 25 mmol/L (21-32) Anion Gap 13 (6-14) Blood Urea Nitrogen 8 mg/dL (7-20) Creatinine 1.7 mg/dL (0.6-1.0) Estimated GFR (Cockcroft-Gault) 30.7 Glucose Level 152 mg/dL (70-99) Calcium Level 9.3 mg/dL (8.5-10.1) Total Bilirubin 1.2 mg/dL (0.2-1.0) Direct Bilirubin 0.2 mg/dL (0.0-0.2) Aspartate Amino Transf (AST/SGOT) 62 U/L (15-37) Alanine Aminotransferase (ALT/SGPT) 44 U/L (14-59) Alkaline Phosphatase 64 U/L (46-116) Creatine Kinase 294 U/L (26-192) Troponin I High Sensitivity 68 ng/L (4-50) 69 ng/L (4-50) Total Protein 7.7 g/dL (6.4-8.2) Albumin 4.4 g/dL (3.4-5.0) Lipase 142 U/L (73-393) Influenza Type A (Rapid) Negative (NEGATIVE) Influenza Type B (Rapid) Negative (NEGATIVE) SARS-CoV-2 Antigen (Rapid) Negative (NEGATIVE) Urine Collection Type Unknown Urine Color Yellow Urine Clarity Clear Urine pH 6.5 Urine Specific [place] 1.020 Urine Protein Trace (NEG-TRACE) Urine Glucose (UA) Neg mg/dL (NEG) Urine Ketones (Stick) 40 mg/dL (NEG) Urine Blood Neg (NEG) Urine Nitrite Neg (NEG) Urine Bilirubin Small (NEG) Urine Urobilinogen Dipstick 0.2 mg/dL (0.2 mg/dL) Urine Leukocyte Esterase Neg (NEG) Urine RBC 0 /HPF (0-2) Urine WBC Occ /HPF (0-4) Urine Squamous Epithelial Cells Mod /LPF Urine Bacteria 0 /HPF (0-FEW) Urine Opiates Screen Neg (NEG) Urine Methadone Screen Neg (NEG) Urine Barbiturates Neg (NEG) Urine Phencyclidine Screen Neg (NEG) Urine Amphetamine/Methamphetamine Pos (NEG) Urine Benzodiazepines Screen Neg (NEG) Urine Cocaine Screen Neg (NEG) Urine Cannabinoids Screen Neg (NEG) Urine Ethyl Alcohol Neg (NEG) Test 01/05/22 01:47 Troponin I High Sensitivity 62 ng/L (4-50) ASSESSMENT/PLAN Assessment/Plan 1. Abdominal pain, nausea/vomiting, diarrhea; abdominal series without acute findings. as per IM 2. Mild troponin elevation; high sensitivity peak 68. Type II, demand ischemia 3. RYLEY 4. Hypokalemia 5. Seizure disorder 6. Hypothyroidism 7. UDS + for methamphetamines; on Vyvanse Recommendations Lipids TSH Supportive care from a CV standpoint Can check routine echo on an outpatient basis JENARO COKER APRN Jan 05, 2022 08:05
[2022-01-05] MEDS: metroNIDAZOLE 500 MG TABLET PO SCH ×3 (12:24→20:46)
[2022-01-05] MEDS ORDERED: CETI10TA74 PO (13:58)
[2022-01-05] MEDS ORDERED: ARIP5TAB13 PO (13:58)
[2022-01-05] MEDS ORDERED: VITAMIN D PO (13:58)
[2022-01-05] MEDS ORDERED: GABA-586 PO (13:58)
[2022-01-05 15:36] VITALS: BP_SYST 112
[2022-01-05 15:45] VITALS: BP 112/71
[2022-01-05 18:15] LABS: CHOLESTEROL/HDL RATIO 6.6
[2022-01-05 20:42] VITALS: BP 85/51
[2022-01-05] MEDS: LACTOBACILLUS RHAMNOSUS GG 1 CAPSULE. PO SCH (20:46)
[2022-01-05] MEDS ORDERED: ZONISAMIDE 100 MG CAPSULE. PO SCH (21:00)
--- NOTE | 2022-01-05 22:42 | HP ---
DATE OF SERVICE: 01/05/2022 ADMIT DATE: 01/05/2022 HISTORY OF PRESENT ILLNESS: A 61-year-old female came in through the Emergency Room. The patient has been having severe problems with nausea and vomiting. She was unable to keep anything down for the last 4 days. She has been also having severe diarrhea, generalized abdominal pain. She became increasingly dehydrated, been tried as an outpatient several times with antiemetics as well as also antidiarrheal medications, but also has been having other problems in keeping her hydration up to sufficient levels, but was unable to. As a result of this, the patient was admitted for hydration and further evaluation of her abdominal pain and her nausea and vomiting. Apparently, there is also other members of the family with some similar problems and she will continue to be monitored on that issue as well. She will be given hydration and make further assessment on that. She also was noted to have some elevated troponin levels, which will be monitored carefully as well. PAST MEDICAL HISTORY: Includes some memory loss. She has had some numbness of the tongue, respiratory disorder, sleep apnea, mild obesity, GERD. She has had D and C's, 4 times miscarriage, tubal ligation, osteopenia, osteoarthritis, back surgery, endocrine disorders, severe depression, cardiogenic syncope. Tetanus immunization is up-to-date and other immunizations are up-to-date. Hypothyroidism, seizure disorders, PTSD, stage III kidney disease, elevated LFTs, IBS, tubal ligation, osteopenia, hypothyroidism, depression, hypertension, short-term memory loss. FAMILY HISTORY: Includes that of miscarriage in the family, hypercholesterolemia, hypertension, diabetes, breast cancer, COPD. ALLERGIES: SULFUR, TETANUS, DIPHTHERIA. SOCIAL HISTORY: Denies smoking, alcohol or drug use. She is a full code. REVIEW OF SYSTEMS: Generally feeling down, depressed. Nausea and vomiting. Denies any headaches, visual change, blurred vision, double vision. Does have some numbness in her tongue, headache. Denies any shortness of breath. Mild chest discomfort. Does have problems of nausea and vomiting as noted. Does have diarrhea, but denies any blood in the stool. Denies any mucus. Does have some abdominal cramping. Does have some leg cramps. HOME MEDICATIONS: Include Zyrtec, Abilify, gabapentin, Vyvanse, vitamin D, levothyroxine sodium 175 mcg, Ativan 1 mg, meclizine 25 mg, Prilosec 20, propranolol 120 mg, Trintellix 20 mg, Zonegran 100 mg. The patient will go ahead and continue to be monitored on such. PHYSICAL EXAMINATION: VITAL SIGNS: Blood pressure 110/50, anywhere from 88%-92% on room air, respiratory rate 16, pulse 62, afebrile. HEENT: The patient's head was atraumatic, normocephalic. Eyes: PERRLA without jaundice. Mouth and throat were normal. NECK: Supple without JVD or thyromegaly. The patient does have a cushingoid look to her face. The eyes were PERRL, EOMI. Sclerae clear. Fundi benign. Mouth and throat appropriate. LUNGS: Diminished with poor movement of air. CARDIOVASCULAR: Regular sinus rhythm. ABDOMEN: Soft, diffuse tenderness throughout. No rebounding or guarding. Positive bowel sounds. No hepatosplenomegaly was noted. EXTREMITIES: No clubbing, cyanosis or edema. NEUROLOGIC: The patient is alert, somewhat depressed affect. LABORATORY DATA: Apparently looked like sodium 137, potassium 3.2, creatinine 1.7. GFR down to 30. Troponin elevated at 68. TSH markedly elevated to 138.9. Cholesterol 371, LDL 275. Thyroid is negative. IMPRESSION: Severe dehydration, severe hypothyroidism, possible myxedema, severe hypercholesterolemia, elevated troponin levels, nausea, vomiting, dehydration. We will go ahead and continue to monitor the patient, hydrate, give her additional thyroid medication, check her cortisol levels and further adjust accordingly her other hormonal and electrolyte abnormalities as well as additional medications to help lower her cholesterol levels. QUENTIN/LOU/ALICE DR: Gregg TID: [id number]
[2022-01-05] MEDS ORDERED: MECLIZINE 12.5 MG TABLET. PO PRN (22:45)
[2022-01-06] VITALS (7 sets, daily range): BP systolic 90–122; BP diastolic 61–84
[2022-01-06] MEDS: ONDANSETRON PF 4 MG/2 ML VIAL. IVP PRN ×2 (01:31→07:48)
--- NOTE | 2022-01-06 06:46 | EKG ---
[address] [address] Test Date: 2022-01-05 Test Time: 02:03:49 Pat Name: PHILLIP VELA Department: Room: 121 A Gender: F Flow Manager: ESHA : 1960 Requested By: ANAND VILLA Order Number: [id number] Reading MD: Measurements Intervals [place] Rate: 60 P: 48 ND: 196 QRS: 4 QRSD: 94 T: 144 QT: 496 QTc: 501 Interpretive Statements SINUS RHYTHM R-S TRANSITION ZONE IN V LEADS DISPLACED TO THE LEFT T ABNORMALITY IN ANTERIOR LEADS HIGH LATERAL LEADS PROLONGED QT ABNORMAL ECG RI6.02 No previous ECG available for comparison
[2022-01-06] MEDS ORDERED: LEVOTHYROXINE 175 MCG TABLET PO SCH (07:30)
[2022-01-06] MEDS: PANTOPRAZOLE 40 MG TABLET. PO SCH (07:51)
[2022-01-06 07:53] LABS: BASO # 0.1 x10^3/uL (0.0-0.2); BASO % 1 % (0-3); EOS # 0.1 x10^3/uL (0.0-0.7); EOS % 1 % (0-3); HEMATOCRIT 42.9 % (36.0-47.0); HEMOGLOBIN 14.3 g/dL (12.0-15.5); LYMPH # 2.5 x10^3/uL (1.0-4.8); LYMPH % 33 % (24-48); MEAN CORPUSCULAR HEMOGLOBIN 32 pg (25-35); MEAN CORPUSCULAR HGB CONC 34 g/dL (31-37); MEAN CORPUSCULAR VOLUME 95 fL (79-100); MONO # 0.4 x10^3/uL (0.0-1.1); MONO % 5 % (0-9); NEUT # 4.4 x10^3uL (1.8-7.7); NEUT % 59 % (31-73); PLATELET COUNT 162 x10^3/uL (140-400); RED BLOOD COUNT 4.51 x10^6/uL (3.50-5.40); RED CELL DISTRIBUTION WIDTH 14.1 % (11.5-14.5); WHITE BLOOD COUNT 7.5 x10^3/uL (4.0-11.0)
--- NOTE | 2022-01-06 08:09 | RAD ---
EXAMINATION: CT HEAD/BRAIN WO CLINICAL HISTORY: Altered mental status. TECHNIQUE: Serial axial images without IV contrast were obtained from the vertex to the foramen magnu m. CT Dose Reduction Employed: One or more of the following individualized dose reduction techniques zenobia e utilized for this examination: 1. Automated exposure control 2. Adjustment of the mA and/or kV ac cording to patient size 3. Use of iterative reconstruction technique. COMPARISON: 02/27/2019 FINDINGS: Acute Change: No evidence of an acute infarct or other acute parenchymal process. Hemorrhage: No evidence of acute intracranial hemorrhage. Mass Lesion/Mass Effect: No evidence of intracranial mass or extraaxial fluid collection. No signific ant mass effect. Chronic Change: Scattered patchy foci of hypoattenuation in the supratentorial white matter, nonspeci fic but likely represents mild microvascular ischemia. Parenchyma: Parenchyma otherwise within normal limits for age. Ventricles: Ventricles within normal limits for age. Paranasal Sinuses and Skull Base: Visualized paranasal sinuses clear. Visualized skull base and soft tissues unremarkable. IMPRESSION: No evidence of acute intracranial abnormality. Electronically signed by: Adam Nelson DO (01/06/2022 8:07 AM) [id number]
--- NOTE | 2022-01-06 08:10 | PDOC ---
CARDIO Progress Notes Date & Time Date of Service DATE: 01/06/22 TIME: 08:09 Time of Evaluation 08:09 Subjective Notes No chest pain, palpitations, dizziness. Reports n/v better. Still c/o "brain fog" Vitals Vitals Vital Signs Date Time Temp Pulse Resp B/P (MAP) Pulse Ox O2 Delivery O2 Flow Rate FiO2 01/06/22 06:16 98.2 68 18 90/61 (71) 92 Room Air Weight Weight [ ] Input and Output I.O. Intake and Output 01/06/22 07:00 Intake Total 1020 ml Output Total 2 ml Balance 1018 ml Intake Oral 1020 ml Output Urine Total 2 ml Laboratory Labs Laboratory Tests Test 01/04/22 20:55 01/04/22 21:10 01/04/22 22:40 01/04/22 23:51 White Blood Count 10.0 x10^3/uL (4.0-11.0) Red Blood Count 5.17 x10^6/uL (3.50-5.40) Hemoglobin 16.7 g/dL (12.0-15.5) Hematocrit 48.1 % (36.0-47.0) Mean Corpuscular Volume 93 fL (79-100) Mean Corpuscular Hemoglobin 32 pg (25-35) Mean Corpuscular Hemoglobin Concent 35 g/dL (31-37) Red Cell Distribution Width 14.5 % (11.5-14.5) Platelet Count 205 x10^3/uL (140-400) Neutrophils (%) (Auto) 85 % (31-73) Lymphocytes (%) (Auto) 10 % (24-48) Monocytes (%) (Auto) 4 % (0-9) Eosinophils (%) (Auto) 1 % (0-3) Basophils (%) (Auto) 1 % (0-3) Neutrophils # (Auto) 8.5 x10^3uL (1.8-7.7) Lymphocytes # (Auto) 1.0 x10^3/uL (1.0-4.8) Monocytes # (Auto) 0.3 x10^3/uL (0.0-1.1) Eosinophils # (Auto) 0.1 x10^3/uL (0.0-0.7) Basophils # (Auto) 0.1 x10^3/uL (0.0-0.2) Prothrombin Time 10.3 SEC (9.4-11.4) Prothromb Time International Ratio 1.0 (0.9-1.1) Activated Partial Thromboplast Time 24 SEC (23-33) Sodium Level 137 mmol/L (136-145) Potassium Level 3.2 mmol/L (3.5-5.1) Chloride Level 99 mmol/L (98-107) Carbon Dioxide Level 25 mmol/L (21-32) Anion Gap 13 (6-14) Blood Urea Nitrogen 8 mg/dL (7-20) Creatinine 1.7 mg/dL (0.6-1.0) Estimated GFR (Cockcroft-Gault) 30.7 Glucose Level 152 mg/dL (70-99) Calcium Level 9.3 mg/dL (8.5-10.1) Total Bilirubin 1.2 mg/dL (0.2-1.0) Direct Bilirubin 0.2 mg/dL (0.0-0.2) Aspartate Amino Transf (AST/SGOT) 62 U/L (15-37) Alanine Aminotransferase (ALT/SGPT) 44 U/L (14-59) Alkaline Phosphatase 64 U/L (46-116) Creatine Kinase 294 U/L (26-192) Troponin I High Sensitivity 68 ng/L (4-50) 69 ng/L (4-50) Total Protein 7.7 g/dL (6.4-8.2) Albumin 4.4 g/dL (3.4-5.0) Triglycerides Level 202 mg/dL (0-150) Cholesterol Level 371 mg/dL (0-200) LDL Cholesterol, Calculated 275 mg/dL (0-100) VLDL Cholesterol, Calculated 40 mg/dL (0-40) Non-HDL Cholesterol Calculated 315 mg/dL (0-129) HDL Cholesterol 56 mg/dL (40-60) Cholesterol/HDL Ratio 6.6 Lipase 142 U/L (73-393) Thyroid Stimulating Hormone (TSH) 138.900 uIU/mL (0.358-3.740) Influenza Type A (Rapid) Negative (NEGATIVE) Influenza Type B (Rapid) Negative (NEGATIVE) SARS-CoV-2 Antigen (Rapid) Negative (NEGATIVE) Urine Collection Type Unknown Urine Color Yellow Urine Clarity Clear Urine pH 6.5 Urine Specific [place] 1.020 Urine Protein Trace (NEG-TRACE) Urine Glucose (UA) Neg mg/dL (NEG) Urine Ketones (Stick) 40 mg/dL (NEG) Urine Blood Neg (NEG) Urine Nitrite Neg (NEG) Urine Bilirubin Small (NEG) Urine Urobilinogen Dipstick 0.2 mg/dL (0.2 mg/dL) Urine Leukocyte Esterase Neg (NEG) Urine RBC 0 /HPF (0-2) Urine WBC Occ /HPF (0-4) Urine Squamous Epithelial Cells Mod /LPF Urine Bacteria 0 /HPF (0-FEW) Urine Opiates Screen Neg (NEG) Urine Methadone Screen Neg (NEG) Urine Barbiturates Neg (NEG) Urine Phencyclidine Screen Neg (NEG) Urine Amphetamine/Methamphetamine Pos (NEG) Urine Benzodiazepines Screen Neg (NEG) Urine Cocaine Screen Neg (NEG) Urine Cannabinoids Screen Neg (NEG) Urine Ethyl Alcohol Neg (NEG) Test 01/05/22 01:10 01/05/22 01:47 01/06/22 07:45 Coronavirus (COVID-19)(PCR) Not detected (NOT DETECTD) Magnesium Level 2.2 mg/dL (1.8-2.4) Troponin I High Sensitivity 62 ng/L (4-50) White Blood Count 7.5 x10^3/uL (4.0-11.0) Red Blood Count 4.51 x10^6/uL (3.50-5.40) Hemoglobin 14.3 g/dL (12.0-15.5) Hematocrit 42.9 % (36.0-47.0) Mean Corpuscular Volume 95 fL (79-100) Mean Corpuscular Hemoglobin 32 pg (25-35) Mean Corpuscular Hemoglobin Concent 34 g/dL (31-37) Red Cell Distribution Width 14.1 % (11.5-14.5) Platelet Count 162 x10^3/uL (140-400) Neutrophils (%) (Auto) 59 % (31-73) Lymphocytes (%) (Auto) 33 % (24-48) Monocytes (%) (Auto) 5 % (0-9) Eosinophils (%) (Auto) 1 % (0-3) Basophils (%) (Auto) 1 % (0-3) Neutrophils # (Auto) 4.4 x10^3uL (1.8-7.7) Lymphocytes # (Auto) 2.5 x10^3/uL (1.0-4.8) Monocytes # (Auto) 0.4 x10^3/uL (0.0-1.1) Eosinophils # (Auto) 0.1 x10^3/uL (0.0-0.7) Basophils # (Auto) 0.1 x10^3/uL (0.0-0.2) Physical Exams HEENT: Neck Supple W Full Motion Chest: Symmetric Lungs: Clear to Auscultation Heart: RRR Abdomen: Soft N/T Extremities: No Edema Neurology: alert, oriented, follow commands, other (flat affect ) Assessment Assessment 1. Abdominal pain, nausea/vomiting, diarrhea; abdominal series without acute findings. as per IM 2. Mild troponin elevation; high sensitivity peak 68. Type II, demand ischemia 3. RYLEY; better 4. Hypokalemia 5. Seizure disorder 6. Hypothyroidism; TSH 138. as per IM 7. Hyperlipidemia Recommendations ASA, statin Replace K Supportive care from a CV standpoint Can check routine echo on an outpatient basis JENARO COKER APRN Jan 06, 2022 08:10
[2022-01-06 08:17] LABS: CALCIUM 8.6 mg/dL (8.5-10.1); CREATININE 1.5 mg/dL (0.6-1.0); GFR 35.4; POTASSIUM 3.1 mmol/L (3.5-5.1)
[2022-01-06] MEDS: LEVOTHYROXINE SODIUM 100 MCG VIAL. IVP SCH (08:17)
[2022-01-06] MEDS: LACTOBACILLUS RHAMNOSUS GG 1 CAPSULE. PO SCH ×2 (08:17→20:35)
[2022-01-06] MEDS: metroNIDAZOLE 500 MG TABLET PO SCH ×3 (08:17→20:36)
[2022-01-06] MEDS: ASPIRIN ENTERIC COATED 81 MG TABLET.DR. PO SCH (08:17)
[2022-01-06] MEDS ORDERED: PROPRANOLOL HCL 120 MG PO SCH (09:00)
[2022-01-06] MEDS: NON FORMULARY ITEM (Vortioxetine Hydrobromide (Trintellix) 20 MG) PO SCH (09:00)
[2022-01-06] MEDS ORDERED: BUPROPION HCL 450 MG PO SCH (09:00)
[2022-01-06] MEDS: IV NORMAL SALINE 1,000ML 1,000 ML IV SCH ×2 (09:15→22:43)
--- NOTE | 2022-01-06 10:56 | RAD ---
US THYROID History: Reason: ABNORMAL THYROID LABS / Spl. Instructions: / History: Comparison: November 09, 2018 Technique: Multiple grayscale and color Doppler images of the thyroid gland were obtained. Findings: Right thyroid lobe: 4.2 x 1.2 x 1.2 cm. Heterogeneous echotexture. Left thyroid lobe: 3.4 x 0.8 x 1.0 cm. Heterogeneous echotexture. Isthmus: 0.3 cm. -Left inferior thyroid calcified nodule measures 0.4 x 0.4 x 0.3 cm. TI-RADS 3. -Previously seen right thyroid nodule is not well characterized on the current examination. ACR Thyroid Imaging, Reporting And Data System (TI-RADS): White Paper Of The ACR TI-RADS Committee. J ournal of the [employer], volume 14, issue 5, pages 587-595 (February 2017). IMPRESSION: 1. Diffusely heterogeneous thyroid, may indicate nonspecific thyroiditis. Recommend correlation with thyroid lab values. Electronically signed by: Rico Lazaro DO (01/06/2022 10:54 AM) [id number]
[2022-01-06] MEDS ORDERED: POTASSIUM CHLORIDE 20 MEQ TABLET.ER. PO ONE (13:45)
[2022-01-06] MEDS: ATORVASTATIN CALCIUM 20 MG TABLET PO SCH (20:36)
[2022-01-06] MEDS: LORazepam 1 MG TABLET PO PRN (22:57)
--- NOTE | 2022-01-07 02:58 | PN ---
SUBJECTIVE: A 61-year-old female in with general lethargy as well as severe problems with nausea, vomiting, diarrhea and generalized abdominal pain. The patient was found to have myxedema. She had a markedly elevated TSH of approximately 140. She has been given IV levothyroxine to help get her TSH down and overcome her myxedema type status, that has helped her bring up her blood pressure from 90/60 up to 113/73, respiratory rate 18, pulse 78, afebrile. She is feeling a little less lethargic and looks a little bit more energetic with the compensation for her low thyroid. The patient's potassium is still slightly low at 3.1, creatinine is still elevated at 1.5, showing the significant degree of dehydration. The patient's cholesterol was markedly elevated at 371, LDL of 275, possibly going along with her myxedema. The patient otherwise continues to be monitored carefully on the multiple situations going on with her extremely low thyroid. OBJECTIVE: LUNGS: Diminished, but clear. CARDIOVASCULAR: Stable. ABDOMEN: Soft, nontender. EXTREMITIES: No clubbing, cyanosis or edema. NEUROLOGIC: Intact. IMPRESSION: Therefore, myxedema, acute on top of chronic kidney disease, hypercholesterolemia, hypokalemia, change in mental status secondary to hypothyroidism and myxedema, dehydration, diarrhea, change in mental status. PLAN: Continue to monitor the patient accordingly and make further assessment once her TSH has been normalized. QUENTIN/LOU DR: QUENTIN/asuncion TID: [id number]
[2022-01-07 07:20] VITALS: BP 128/75
[2022-01-07] MEDS: NON FORMULARY ITEM (Vortioxetine Hydrobromide (Trintellix) 20 MG) PO SCH (09:00)
[2022-01-07] MEDS: metroNIDAZOLE 500 MG TABLET PO SCH ×3 (09:27→20:18)
[2022-01-07] MEDS: ARIPiprazole 5 MG TABLET PO SCH (09:27)
[2022-01-07] MEDS: LEVOTHYROXINE SODIUM 100 MCG VIAL. IVP SCH (09:27)
[2022-01-07] MEDS: LACTOBACILLUS RHAMNOSUS GG 1 CAPSULE. PO SCH ×2 (09:28→20:18)
[2022-01-07] MEDS: PANTOPRAZOLE 40 MG TABLET. PO SCH (09:28)
[2022-01-07] MEDS: ASPIRIN ENTERIC COATED 81 MG TABLET.DR. PO SCH (09:28)
[2022-01-07] MEDS: CETIRIZINE HCL 10 MG TABLET PO SCH (09:28)
[2022-01-07 11:00] VITALS: BP 125/81
[2022-01-07] MEDS: IV NORMAL SALINE 1,000ML 1,000 ML IV SCH (14:48)
[2022-01-07 15:17] VITALS: BP 111/75
[2022-01-07 19:45] VITALS: BP 134/85
[2022-01-07] MEDS: ATORVASTATIN CALCIUM 20 MG TABLET PO SCH (20:18)
[2022-01-07] MEDS: ONDANSETRON PF 4 MG/2 ML VIAL. IVP PRN (20:19)
[2022-01-07] MEDS: LORazepam 1 MG TABLET PO PRN (20:19)
[2022-01-07 23:46] VITALS: BP 115/82
[2022-01-08] MEDS: IV NORMAL SALINE 1,000ML 1,000 ML IV SCH ×2 (00:44→14:35)
[2022-01-08 05:40] VITALS: BP 123/78
[2022-01-08 06:29] LABS: CALCIUM 8.5 mg/dL (8.5-10.1); CREATININE 1.1 mg/dL (0.6-1.0); GFR 50.7
[2022-01-08] MEDS ORDERED: POTASSIUM CHLORIDE 20 MEQ TABLET.ER. PO ONE ×2 (07:15→20:30)
[2022-01-08] MEDS: LEVOTHYROXINE SODIUM 100 MCG VIAL. IVP SCH (08:32)
[2022-01-08] MEDS: LACTOBACILLUS RHAMNOSUS GG 1 CAPSULE. PO SCH ×2 (08:33→20:59)
[2022-01-08] MEDS: metroNIDAZOLE 500 MG TABLET PO SCH ×3 (08:33→20:59)
[2022-01-08] MEDS: CETIRIZINE HCL 10 MG TABLET PO SCH (08:33)
[2022-01-08] MEDS: PANTOPRAZOLE 40 MG TABLET. PO SCH (08:33)
[2022-01-08] MEDS: ASPIRIN ENTERIC COATED 81 MG TABLET.DR. PO SCH (08:34)
[2022-01-08] MEDS: ARIPiprazole 5 MG TABLET PO SCH (08:34)
[2022-01-08] MEDS: NON FORMULARY ITEM (Vortioxetine Hydrobromide (Trintellix) 20 MG) PO SCH (08:38)
--- NOTE | 2022-01-08 09:46 | PN ---
SUBJECTIVE: A 61-year-old female suffering from gastroenteritis and myxedema. The patient came in and she was markedly confused, disoriented as well as having severe diarrhea, abdominal pain, dehydration. The patient is feeling a little better, but she still is markedly lethargic, still weak on her legs, difficulty in walking. The patient is receiving IV levothyroxine and adjusting her diet very gingerly as she said she is still having some nausea. OBJECTIVE: VITAL SIGNS: Blood pressure 125/81, respirations 16, pulse 75, afebrile. GENERAL: The patient is alert and oriented, but still has some chase facies or myxedematous facies. LUNGS: Diminished, but basically clear. CARDIOVASCULAR: Regular sinus rhythm. ABDOMEN: Protuberant, soft, nontender. EXTREMITIES: No clubbing, cyanosis. Dry scaly skin. NEUROLOGIC: The patient's speech is somewhat slow, but improving in tempo and enunciation. The patient has continued to make good progress overall and we will continue to monitor her accordingly. The patient's cortisol levels seem to be basically in range. We will go ahead and continue to monitor her accordingly and make further evaluation as her thyroid and electrolytes go into play. IMPRESSION: Myxedema, acute on top of chronic kidney disease, hypercholesterolemia, hypokalemia, change in mental status secondary to hypothyroidism and myxedema, dehydration, diarrhea and change in mental status, generalized musculoskeletal weakness. QUENTIN/LOU/SANTIAGO DR: QUENTIN/asuncion TID: [id number]
[2022-01-08] MEDS: ONDANSETRON PF 4 MG/2 ML VIAL. IVP PRN (10:16)
[2022-01-08 11:15] VITALS: BP 126/75
[2022-01-08] MEDS ORDERED: CITALOPRAM 10 MG TABLET. PO SCH (12:00)
[2022-01-08 15:30] VITALS: BP 126/90
[2022-01-08] MEDS: NON FORMULARY ITEM (Lisdexamfetamine Dimesylate (Vyvanse) 70 MG) PO SCH (16:00)
[2022-01-08] MEDS: IPRATRPIUM/ALBUTEROL 0.5/2.5MG 3 ML NEBU. NEB SCH (19:13)
[2022-01-08 19:31] VITALS: BP 137/90
[2022-01-08] MEDS: ATORVASTATIN CALCIUM 20 MG TABLET PO SCH (20:59)
[2022-01-08 23:21] VITALS: BP 134/89
--- NOTE | 2022-01-09 03:28 | PN ---
SUBJECTIVE: A 61-year-old female in with myxedema. The patient is still very weak, receiving physical and occupational therapy, starting to eat solid food, has not been able to keep anything down, has also had problems with gastroenteritis and has had trouble with alimentation. OBJECTIVE: VITAL SIGNS: Blood pressure 126/90, respiratory rate 20, pulse 90, afebrile, 91 just on room air. She had dropped down to as 89 on room air (NC). GENERAL: The patient otherwise is alert and oriented. LUNGS: Basically clear, but diminished, poor movement of air, without any expiratory wheezes. CARDIOVASCULAR: Regular sinus rhythm. ABDOMEN: Soft, nontender. No rebound or guarding. Positive bowel sounds. No hepatosplenomegaly was noted. EXTREMITIES: No clubbing, cyanosis, nor edema. NEUROLOGIC: Intact except for her myxedema showing some lethargy, slow mentation, but improving gradually as the days progress. We will continue to monitor the slow hypoxemia. Aggressive pulmonary toilet PT, OT. IMPRESSION: Myxedema gastroenteritis, dehydration, hypoxemia, acute respiratory distress, hypokalemia, change in mental status, dehydration, diarrhea. PLAN: As above. TOYIN DR: Gregg TID: [id number]
[2022-01-09] MEDS: IV NORMAL SALINE 1,000ML 1,000 ML IV SCH (03:40)
[2022-01-09] MEDS: IPRATRPIUM/ALBUTEROL 0.5/2.5MG 3 ML NEBU. NEB SCH ×2 (04:58→10:12)
[2022-01-09 05:30] VITALS: BP 120/80
[2022-01-09] MEDS ORDERED: LEVOTHYROXINE 75 MCG TABLET PO SCH (06:00)
[2022-01-09 06:40] LABS: ALBUMIN 3.8 g/dL (3.4-5.0); ALBUMIN/GLOBULIN RATIO 1.4 (1.0-1.7); CALCIUM 9.1 mg/dL (8.5-10.1); CREATININE 1.3 mg/dL (0.6-1.0); GFR 41.8; MAGNESIUM 1.9 mg/dL (1.8-2.4); POTASSIUM 4.1 mmol/L (3.5-5.1); TOTAL BILIRUBIN 0.5 mg/dL (0.2-1.0); TOTAL PROTEIN 6.5 g/dL (6.4-8.2)
--- NOTE | 2022-01-09 08:51 | RAD ---
AP and Lateral Views of the Chest 01/09/2022 8:35 AM Indication: Shortness of breath Comparison: 2 views of the chest February 27, 2019 Findings: Lung volumes are mildly low. Mild basilar scarring or discoid atelectasis is similar. No ot her acute focal consolidation or infiltrate is identified. Heart size is normal. There is no evidence of pneumothorax or pleural effusion. No acute osseous abnormalities are identified. Impression: Mildly low lung volumes. Otherwise no evidence of acute cardiopulmonary process. Electronically signed by: Rogelio Pretty MD (01/09/2022 8:48 AM) [id number]
[2022-01-09] MEDS ORDERED: ATOR40TA59 PO (09:18)
[2022-01-09] MEDS ORDERED: ASPI-889 PO (09:18)
[2022-01-09] MEDS: NON FORMULARY ITEM (Lisdexamfetamine Dimesylate (Vyvanse) 70 MG) PO SCH (10:00)
[2022-01-09] MEDS: NON FORMULARY ITEM (Vortioxetine Hydrobromide (Trintellix) 20 MG) PO SCH (10:00)
[2022-01-09] MEDS: CETIRIZINE HCL 10 MG TABLET PO SCH (10:23)
[2022-01-09] MEDS: metroNIDAZOLE 500 MG TABLET PO SCH (10:24)
[2022-01-09] MEDS: ASPIRIN ENTERIC COATED 81 MG TABLET.DR. PO SCH (10:24)
[2022-01-09] MEDS: ARIPiprazole 5 MG TABLET PO SCH (10:24)
[2022-01-09] MEDS: LACTOBACILLUS RHAMNOSUS GG 1 CAPSULE. PO SCH (10:24)
[2022-01-09] MEDS: PANTOPRAZOLE 40 MG TABLET. PO SCH (10:24)
[2022-01-09 10:45] VITALS: BP 114/78
--- NOTE | 2022-01-09 14:38 | DS ---
HOSPITAL COURSE: A 61-year-old female came in with change in mental status, nausea, vomiting, diarrhea. The patient was markedly dehydrated, unable to keep food or liquids down. She became increasingly dehydrated, but also had a marked change in mental status. The patient had myxedema. Her TSH was greater than 140. Her blood pressure was also hypotensive with a blood pressure of 90/60. The patient was extremely weakened. Her face was myxedematous with swelling to her face and general lethargy throughout her body as well as generalized weakness. The patient was given additional fluids. Her hemoglobin came down from 16 down to 14 and her creatinine now came down from 1.7 down to 1.3, showing the degree of dehydration this young lady was experiencing. The patient made good progress gradually with IV levothyroxine to get her levels back into range and then switched over to oral. She also had some problems with mild hypoxia but noted her oxygen saturations dropped on room air and below 90% and she was placed on incentive spirometry. She also was started on physical and occupational therapy to regain some of her strengths lost from the myxedematous situation. Her cholesterol was also noted to be elevated at 371 with an LDL of 275, triglycerides were 202. She was started on Lipitor for that significant medical issue. She was COVID negative. Her head CT was negative. She had an abdominal series as noted showed no acute process that was for that acute process of the nausea, vomiting and abdominal discomfort. The patient also had a thyroid ultrasound of the thyroid because of her myxedema and it showed a nonspecific thyroiditis and that will be followed up as an outpatient as we continue her workup and follow up on this. So, we had a significantly ill individual with myxedema, thyroiditis, gastroenteritis, nausea, vomiting, dehydration, acute renal failure, hypercholesterolemia, hypertriglyceridemia, COVID negative, hypokalemia, electrolyte imbalance. The patient will continue to be monitored as an outpatient and probably repeat her thyroid studies as an outpatient. She is to be off work for another week. She will be on a heart healthy diet. Encourage incentive spirometry and physical and occupational therapy as an outpatient. NAHOMI DR: Gregg TID: [id number]
== END 2022-01-09 13:15 | disposition home or self-care (01) | DRG 392 ==
LOC: ER 20:11 → ER HOLD 01-05 00:43 → 1 SOUTH 01-05 00:50
PROVIDERS: ADMIT Family Medicine; ATTEND Family Medicine
DX: K52.9 Noninfective gastroenteritis and colitis, unspecified (principal); I24.8 Other forms of acute ischemic heart disease; N17.9 Acute kidney failure, unspecified; E86.0 Dehydration; E03.9 Hypothyroidism, unspecified; E11.22 Type 2 diabetes mellitus with diabetic chronic kidney disease; E78.00 Pure hypercholesterolemia, unspecified; E78.1 Pure hyperglyceridemia; E78.5 Hyperlipidemia, unspecified; E87.6 Hypokalemia; F43.10 Post-traumatic stress disorder, unspecified; G40.909 Epilepsy, unspecified, not intractable, without status epilepticus; I12.9 Hypertensive chronic kidney disease with stage 1 through stage 4 chronic kidney disease, or unspecified chronic kidney disease; N18.30 Chronic kidney disease, stage 3 unspecified; Z20.822 Contact with and (suspected) exposure to COVID-19; E66.9 Obesity, unspecified; F32.A Depression, unspecified; F41.9 Anxiety disorder, unspecified; G43.909 Migraine, unspecified, not intractable, without status migrainosus; F15.90 Other stimulant use, unspecified, uncomplicated; G47.33 Obstructive sleep apnea (adult) (pediatric); K21.9 Gastro-esophageal reflux disease without esophagitis; Z80.3 Family history of malignant neoplasm of breast; Z82.49 Family history of ischemic heart disease and other diseases of the circulatory system; Z82.5 Family history of asthma and other chronic lower respiratory diseases; Z83.3 Family history of diabetes mellitus; Z90.49 Acquired absence of other specified parts of digestive tract; Z88.2 Allergy status to sulfonamides; Z88.7 Allergy status to serum and vaccine; Z68.35 Body mass index [BMI] 35.0-35.9, adult
CPT/HCPCS: 36415; 70450; 71046; 74022; 76536; 80048; 80053; 80061; 80076; 80307; 81001; 82533; 82550; 83690; 83735; 84443; 84484; 85025; 85610; 85730; 87428; 87493; 93005; 94640; 96361; 96374; 96375; J0780; J1200; J1885; J2405; J3490; J7120; U0003; 97116; 97535; 99285-25; J7030